=== PATIENT | female | born 1950 | race Caucasian/White ===

== ENCOUNTER 2018-03-25 13:32 | Observation (INO) | payer OTHER, SELFPAY ==
[2018-03-25] VITALS (8 sets, daily range): BP systolic 116–160; BP diastolic 60–92; PULSE 66–92; RESP 16–18; TEMP 36.7–37.1; O2SAT 96–99; BMI 21.6
--- NOTE | 2018-03-25 13:43 | DI.RAD.S_ITS ---
PROCEDURE: XR CHEST 1V INDICATIONS: chest pain TECHNIQUE: One view of the chest was acquired. COMPARISON: None. FINDINGS: Surgical changes and devices: None. Lungs and pleura: No pleural effusions or pneumothorax. Lungs are clear. Mediastinum: Mediastinal contours appear normal. Heart size is normal. Bones and chest wall: No suspicious bony lesions. Overlying soft tissues appear unremarkable. IMPRESSION: Source of chest pain is not seen. Dictated by: Hoang Archer M.D. on 03/25/2018 at 13:54 Approved by: Hoang Archer M.D. on 03/25/2018 at 13:54
[2018-03-25 14:05] LABS: Add Manual Diff / Slide Review NO; Basophils Percent Auto 0.7 % (0-2); Eosinophils Percent Auto 5.8 % (2-4); Hematocrit 43.3 % (36-46); Hemoglobin 14.7 g/dL (12.0-16.0); Lymphocytes Percent Auto 35.8 % (25-40); Mean Corpuscular HGB Conc 33.9 % (30-36); Mean Corpuscular Hemoglobin 32.4 PG (26-34); Mean Corpuscular Volume 95.6 fL (80-100); Monocytes Percent Auto 13.4 % (3-14); Neutrophils Absolute Auto 2100 /uL (3000-5900); Neutrophils Percent Auto 44.3 % (50-75); Platelet Count 176 X10^3/uL (150-400); Red Blood Cell Count 4.52 X10^6/uL (4.0-5.2); White Blood Cell Count 4.6 X10^3/uL (4.5-11.0)
[2018-03-25 14:13] LABS: INR 0.9 (0.9-1.3); Prothrombin Time 10.1 SECONDS (10.1-12.7)
[2018-03-25 14:15] LABS: PTT Partial Thromboplastin Tim 31 SECONDS (26.4-36.2)
[2018-03-25 14:16] LABS: D Dimer 212 ng/mL (<230)
[2018-03-25 14:17] LABS: Alanine Aminotransferase 48 IU/L (9-52); Albumin 4.5 g/dL (3.5-5.0); Albumin Globulin Ratio 1.8 (1.0-2.8); Alkaline Phosphatase 82 U/L (38-126); Aspartate Aminotransferase 43 IU/L (14-36); BUN Creatinine Ratio 22.5 (6-22); Bilirubin Total 0.9 mg/dL (0.2-1.3); Blood Urea Nitrogen 18 mg/dL (7-17); Carbon Dioxide 26 mmol/L (22-32); Chloride 106 mmol/L (98-107); Creatine Kinase 93 U/L (30-135); Estimated Glomerular Filt Rate > 60.0 mL/min (>60); Globulin 2.5 g/dL (1.7-4.1); Glucose 89 mg/dL (80-110); HEMOLYSIS < 15 (0-50); Lipase 125 U/L (23-300); Potassium 4.6 mmol/L (3.4-5.1); Sodium 142 mmol/L (137-145)
[2018-03-25 14:30] LABS: Troponin I < 0.012 ng/mL (0.01-0.034)
--- NOTE | 2018-03-25 14:45 | ED.CHESTPAIN ---
HPI - Chest Pain General Chief Complaint: Chest Pain Stated Complaint: chest pressure Time Seen by Provider: 03/25/18 13:38 Source: patient, family and EMS Mode of arrival: EMS Limitations: no limitations History of Present Illness HPI narrative: 67-year-old nonsmoking female presents by EMS for evaluation of chest pain at rest which started about 10:00 a.m. this morning. She states it radiated upper chest to the base of her neck. She denies provocation but states it improved after the medics gave her nitro. She denies associated symptoms such is dizziness or shortness of breath but has become a bit lightheaded on occasion. She states her chest discomfort is more like a burning or pressure, not a sharp and stabbing pain. She does admit to decreased exercise tolerance over the past week and states she has become increasingly fatigued with normal exertion in her [place] [address]. She does admit to a few episodes of similar type discomfort earlier in the week that were brought on by exertion but much shorter in duration. She denies any recent travel, history of blood clots or recent injury. MD complaint: chest pain Onset (ago): hour(s) Duration: constant and improved Onset: during rest Pain location: substernal Quality: tightness and aching Pain radiation: neck Relieving factors: nitroglycerin Exacerbating factors: nothing Treatments prior to arrival chest pain: aspirin and nitroglycerin Related Data Home Medications Medication Instructions Recorded Confirmed citalopram [Celexa] 30 mg PO DAILY #0 08/19/16 03/25/18 bupropion HCl 150 mg PO DAILY 03/25/18 03/25/18 tretinoin 03/25/18 Allergies Allergy/AdvReac Type Severity Reaction Status Date / Time latex [LATEX] Allergy Intermediate RASH Unverified 09/01/17 12:52 Penicillins [PENICILLINS] Allergy Intermediate RASH Unverified 09/01/17 12:52 Review of Systems Review of Systems All systems reviewed & are unremarkable except as noted in HPI and below Constitutional Denies chills, Denies fever(s), Denies lethargy and Denies weakness Eyes Denies change in vision, Denies eye discharge, Denies irritation and Denies loss of vision ENT Ears, Nose, Mouth, and Throat: Denies change in voice, Denies neck pain and Denies sore throat Cardiovascular Reports chest pain, Denies irregular heart rhythm, Denies lightheadedness, Denies palpitations, Denies dyspnea, Denies dyspnea on exertion and Denies orthopnea Respiratory Denies cough, Denies dyspnea, Denies dyspnea on exertion and Denies wheezing Gastrointestinal Gastrointestinal: Denies abdominal pain, Denies change in bowel habits, Denies diarrhea, Denies nausea and Denies vomiting Genitourinary Denies hematuria, Denies flank pain, Denies urinary incontinence and Denies urinary urgency Musculoskeletal Denies neck pain Integumentary/Breasts Denies pruritus, Denies erythema, Denies rash and Denies wounds Neurologic Denies confusion, Denies loss of vision and Denies weakness Psychiatric Denies anxiety, Denies confusion, Denies depression, Denies homicidal ideation and Denies suicidal ideation Endocrine Denies palpitations Hematologic/Lymphatic Denies easy bruising Allergic/Immunologic Denies wheezing [facility] Social History Smoking Status: Never smoker Exam Narrative Exam Narrative: 59-year-old female in no obvious significant distress Initial Vital Signs Initial Vital Signs: Vital Signs Temperature 98.0 F 03/25/18 13:48 Pulse Rate 72 03/25/18 13:48 Respiratory Rate 18 03/25/18 13:48 Blood Pressure 151/80 H 03/25/18 13:48 Pulse Oximetry 99 03/25/18 13:48 Const General: cooperative and well developed Nutritional Appearance: well nourished Orientation: alert, awake, oriented x3 and not confused HENMT Head: normal to inspection Nose: external nose normal Face and sinus: normal facial exam Mouth: oral mucosae normal Eyes General: appearance normal, both eyes and all related structures Eyelids: eyelids normal Conjunctivae: conjunctivae normal Sclera: sclerae normal Pupils: PERRL EOM: EOM intact bilaterally Neck Neck: normal visual inspection, trachea midline, No lymphadenopathy, No midline deformity and No JVD Lymphatic: No lymphedema Resp Effort & Inspection: normal respiratory effort, able to speak in complete sentences, no respiratory distress and no use of accessory muscles Auscultation: clear to auscultation bilaterally, no rales, no rhonchi and no wheezes GI Inspection: non-distended Palpation: soft, no hepatosplenomegaly, No guarding, No pulsatile mass and No tender Auscultation: normal bowel sounds Back/Spine/Pelvis Back: No CVA tenderness Cervical Spine: cervical ROM normal and No pain with cervical ROM Thoracic/Lumbar Spine: thoracic and lumbar spine normal to inspection Skin General: no rashes or lesions noted, No jaundice and No petechiae Extrem General: full ROM, no clubbing, cyanosis or edema, no pedal edema and no calf tenderness Course Orders Ordered: ED Orders 03/25/18 13:43 XR chest 1V Stat 03/25/18 13:55 Complete Blood Count AUTO DIFF Stat Comprehensive Metabolic Panel Stat D Dimer Stat Lipase Stat Partial Thromboplastin Time Stat Prothrombin Time INR Stat Troponin & CK Cardiac Panel Stat Reevaluation(s) Reevaluation #1: no ongoing pain Consultations Consultation #1: Call to Dr. Acuña whom is happy to accept to OBS Vital Signs - 8 hr 03/25/18 13:48 03/25/18 13:51 Temperature 98.0 F Pulse Rate 72 70 Respiratory Rate 18 16 Blood Pressure 151/80 H Blood Pressure [Left Arm] 151/60 H Pulse Oximetry 99 98 MDM - Chest Pain Differential Diagnosis Likely unstable angina pectoris, st elevation myocardial infarction and chest pain Medical Records Data Attestation: I reviewed the patient's medical records. Lab Data Attestation: I reviewed the patient's lab results. Result diagrams: 03/25/18 13:55 03/25/18 13:55 Lab Results 03/25/18 03/25/18 03/25/18 Range/Units 13:55 13:55 13:55 WBC 4.6 (4.5-11.0) X10^3/uL RBC 4.52 (4.0-5.2) X10^6/uL Hgb 14.7 (12.0-16.0) g/dL Hct 43.3 (36-46) % MCV 95.6 (80-100) fL MCH 32.4 (26-34) PG MCHC 33.9 (30-36) % RDW 13.0 (11.6-14.8) % Plt Count 176 (150-400) X10^3/uL Neut % (Auto) 44.3 L (50-75) % Lymph % (Auto) 35.8 (25-40) % Ellis % (Auto) 13.4 (3-14) % Eos % (Auto) 5.8 H (2-4) % Baso % (Auto) 0.7 (0-2) % Neut # (Auto) 2100 L (3554-4151) /uL PT 10.1 (10.1-12.7) SECONDS INR 0.9 (0.9-1.3) APTT 31 (26.4-36.2) SECONDS D-Dimer 212 (<230) ng/mL Sodium 142 (137-145) mmol/L Potassium 4.6 (3.4-5.1) mmol/L Chloride 106 (98-107) mmol/L Carbon Dioxide 26 (22-32) mmol/L BUN 18 H (7-17) mg/dL Creatinine 0.80 (0.52-1.04) mg/dL Estimated GFR > 60.0 (>60) mL/min BUN/Creatinine Ratio 22.5 H (6-22) Glucose 89 (80-110) mg/dL Calcium 9.0 (8.4-10.2) mg/dL Total Bilirubin 0.9 (0.2-1.3) mg/dL AST 43 H (14-36) IU/L ALT 48 (9-52) IU/L Alkaline Phosphatase 82 (38-126) U/L Total Creatine Kinase 93 (30-135) U/L CK-MB (CK-2) TNP CK-MB (CK-2) Rel Index TNP Troponin I < 0.012 (0.01-0.034) ng/mL Total Protein 7.0 (6.3-8.2) g/dL Albumin 4.5 (3.5-5.0) g/dL Globulin 2.5 (1.7-4.1) g/dL Albumin/Globulin Ratio 1.8 (1.0-2.8) Lipase 125 (23-300) U/L Imaging Data Chest x-ray: Radiologist's impression: [address] [address] XRay Report Signed Patient: Erinn Tadeo JMR#: [id number] : 9Acct:[id number] Age/Sex: 67 / FDate of Service: 03/25/18 Loc: ED Accession Number: [id number] Procedure: XR chest 1V Ordering Provider: Lenin Guaman D.O. PROCEDURE: XR CHEST 1V INDICATIONS: chest pain TECHNIQUE: One view of the chest was acquired. COMPARISON: None. FINDINGS: Surgical changes and devices: None. Lungs and pleura: No pleural effusions or pneumothorax. Lungs are clear. Mediastinum: Mediastinal contours appear normal. Heart size is normal. Bones and chest wall: No suspicious bony lesions. Overlying soft tissues appear unremarkable. IMPRESSION: Source of chest pain is not seen. Dictated by: Hoang Archer M.D. on 03/25/2018 at 13:54 Approved by: Hoang Archer M.D. on 03/25/2018 at 13:54 ECG Data Attestation: I personally reviewed and interpreted this ECG as follows: Prior ECG tracings: not available for review Interpretation: EKG is normal sinus rhythm and free of any signs of ischemia or ectopy. EKG #2 no change Discharge Plan Departure Patient Disposition: Admitted as Observation Clinical Impression: Chest pain Discharge Date/Time: 03/25/18 15:02 Admit Date/Time: 03/25/18 15:01 Admit Provider: Candelaria Acuña
[2018-03-25] MEDS: NITROGLYCERIN 0.4 MG SL TAB SL (15:47)
--- NOTE | 2018-03-25 19:12 | P.HP_ITS ---
History of Present Illness Date Patient Seen: 03/25/18 Time Patient Seen: 18:55 Chief complaint: chest pressure Narrative: Chief complaint: Substernal burning History of present illness: This pleasant 67-year-old female who is well known to me is brought to the emergency department via ambulance due to substernal burning which responded to 1 sublingual nitroglycerin. Patient was evaluated in the emergency department where while she was going to the bathroom she had more substernal burning and was given a 2nd dose of nitroglycerin and again responded. She had 2 EKGs the 1st 1 was without symptoms the 2nd 1 was with symptoms and she had a troponin and CK which were all negative. Her symptoms started yesterday when she was cleaning her barn and feeding her horses and she developed substernal burning that radiated up into her throat. She did feel little sick to her stomach but no vomiting she did not have any significant diaphoresis she did not have any shortness of breath she did not have any chest tightness or chest pressure she had no associated headaches. The pain did not radiate to her arms. She felt very tired and so she went and laid down. She was a little concerned that maybe she would have a stroke. Her was in [place] yesterday. She wrote a note stating that she wanted with dignity if she did have a large stroke. She then continued on her day. She has not been drinking alcohol regularly but she did have 3 glasses of red wine last night. She drank coffee this morning and she typically drinks 4 cups of coffee in the morning and she had then at about 930 she developed substernal chest burning. Again it radiated into her throat but not into her neck not into her shoulder and not down her arms. Separately she feels she has been having some left thumb pain. Again today she had no shortness of breath or diaphoresis or chest pressure or actual chest pain. She did not have any nausea or vomiting today. She has not been taking any significant anti-inflammatories. She does drink 4 cups of coffee a day but this is been typically normal for her. Apparently in January she started using a gel that is transdermal that is human growth hormone. She used it for approximately 6-8 weeks but was noted by friends to be ?bouncing off the mo ?so she discontinued this approximately 2 weeks ago. She has been very tired. She states that she has been sleeping better while she was using the transdermal human growth hormone gel and maybe she had better energy. She has been very tired since she stopped it. She used it to help with hair growth, skin wrinkles, libido and energy. Otherwise she has been in her usual state health. She feels good now at the time my interview and is not having any symptoms. Past medical history: 1. Depression 2. Malignant melanoma, history of 3. Hyperlipidemia, declines treatment 4. Gilbert's syndrome 5. Colonic polyps Medications Wellbutrin SR 150 mg p.o. b.i.d. Citalopram 20 mg daily Fish oil 2 daily Calcium supplement Glucosamine chondroitin sulfate Super B complex Vitamin-D Flaxseed Allergies: Penicillin Latex Past surgical history 1. Surgical removal of melanoma on limb 2. Ovarian cyst and fibroid status post laparoscopy in 2003 3. Cataract surgery bilaterally Family history: Father from metastatic lung cancer at age 72. He had a long history of smoking Mother from cerebral aneurysm at 72, she had had an aneurysm at 50, was a smoker Sister with type 1 diabetes Sister with hyperlipidemia and hypertension Brother with sudden episode, survived had a stent placed at age 62 Social history: Patient is . She and her are retired. They live in [facility]. They have a lot a great [place] patient is active around the property Health related behavior: Patient has significantly cut down alcohol use. She has never had any health complications from this. Patient is very active, rides horses. Patient does not smoke and never did on a regular basis Patient History Family & Social History Social History: household members spouse Prior Living Arrangements House Safety & Behavioral: Feels Safe in Current Yes Environment Suicidal Ideation Description None Suicide Plan Description No Plan Tobacco & Substance use: Smoking Status Never smoker alcohol intake frequency a few times a week Substance Use Type does not use Meds Home Medications Medication Instructions Recorded Confirmed Type citalopram [Celexa] 30 mg PO DAILY #0 08/19/16 03/25/18 History bupropion HCl 150 mg PO DAILY 03/25/18 03/25/18 History Allergies Allergy/AdvReac Type Severity Reaction Status Date / Time latex [LATEX] Allergy Intermediate RASH Unverified 09/01/17 12:52 Penicillins [PENICILLINS] Allergy Intermediate RASH Unverified 09/01/17 12:52 Review of Systems Review of Systems All systems reviewed & are unremarkable except as noted in HPI and below Constitutional Constitutional: Reports frequent falls and Reports headache(s) ENT Ears, Nose, Mouth, and Throat: Yes dizziness and Yes headache(s) Cardiovascular Cardiovascular: Reports fainting Neurologic Neurologic: Reports confusion, Reports dizziness, Reports syncope, Reports frequent falls, Reports headache(s), Reports focal weakness and Reports memory loss Psychiatric Psychiatric: Reports confusion and Reports memory loss Exam Vital Signs (past 8 hours): - 03/25/18 13:48 03/25/18 13:51 03/25/18 15:47 Temperature 98.0 F Pulse Rate 72 70 69 Respiratory Rate 18 16 Blood Pressure 151/80 H 143/80 H Blood Pressure [Left Arm] 151/60 H Pulse Oximetry 99 98 03/25/18 15:53 03/25/18 16:05 03/25/18 16:15 Temperature 98.5 F Pulse Rate 73 68 69 Respiratory Rate 17 17 Blood Pressure 143/80 H 116/68 146/83 H Blood Pressure [Left Arm] Pulse Oximetry 99 98 Oxygen Delivery Method Room Air Narrative Exam Narrative: Patient is afebrile vital signs are stable. Patient is alert and oriented in no apparent distress joking and laughing HEENT: Unremarkable Neck: Supple without adenopathy, thyromegaly, jugular venous distention or bruits Chest: Clear to auscultation bilaterally Cor: Regular rate and rhythm without any murmur Abdomen: Positive bowel sounds, soft, mild midepigastric tenderness Extremities: No edema, pulses intact Skin: No rashes Neurologic exam nonfocal, cranial nerves 2-12 are grossly intact. Strength is intact, sensation is intact to light touch Objective Labs Result Diagrams: 03/25/18 13:55 03/25/18 13:55 Labs: Laboratory Results - last 24 hr 03/25/18 03/25/18 03/25/18 13:55 13:55 13:55 WBC 4.6 RBC 4.52 Hgb 14.7 Hct 43.3 MCV 95.6 MCH 32.4 MCHC 33.9 RDW 13.0 Plt Count 176 Neut % (Auto) 44.3 L Lymph % (Auto) 35.8 [place] % (Auto) 13.4 Eos % (Auto) 5.8 H Baso % (Auto) 0.7 Neut # (Auto) 2100 L PT 10.1 INR 0.9 APTT 31 D-Dimer 212 Sodium 142 Potassium 4.6 Chloride 106 Carbon Dioxide 26 BUN 18 H Creatinine 0.80 Estimated GFR > 60.0 BUN/Creatinine Ratio 22.5 H Glucose 89 Calcium 9.0 Total Bilirubin 0.9 AST 43 H ALT 48 Alkaline Phosphatase 82 Total Creatine Kinase 93 CK-MB (CK-2) TNP CK-MB (CK-2) Rel Index TNP Troponin I < 0.012 Total Protein 7.0 Albumin 4.5 Globulin 2.5 Albumin/Globulin Ratio 1.8 Lipase 125 Assessment & Plan Plan: Assessment/Plan Narrative: 67-year-old female with untreated hyperlipidemia and depression with chest pain and concern for unstable angina. At this point workup is negative but due to her clinical presentation and response to nitroglycerin I feel she needs to be admitted for observation and ruled out for acute myocardial infarction. If her labs are normal in the morning I would like her to get a stress Mibi prior to discharge. She was treated with aspirin. We will check labs in the morning as well as doing serial CK and troponins. We will not start beta blockers at this time with hopes that we can do stress testing in a.m.. Will provide nitroglycerin should she have recurrent symptoms. Will continue telemetry and provide supplemental oxygen as indicated. Will treat with Protonix is both GI prophylaxis as well as to treat for suspicion of possible gastric nature of symptoms. Assessment 2. Depression Plan: Continue citalopram and Wellbutrin Assessment 3. History of hyperlipidemia, borderline Plan will check labs in the morning Assessment 4. History of Gilbert's syndrome No current issues Code status is full code
[2018-03-25] MEDS: CITALOPRAM 20 MG TABLET PO (20:07)
[2018-03-25] MEDS: PANTOPRAZOLE 40 MG VIAL IV (20:07)
[2018-03-25 20:35] LABS: Troponin I < 0.012 ng/mL (0.01-0.034)
[2018-03-25] MEDS: LORazepam 0.5 MG TABLET PO (22:18)
[2018-03-26 02:59] LABS: Add Manual Diff / Slide Review NO; Basophils Percent Auto 0.8 % (0-2); Eosinophils Percent Auto 6.6 % (2-4); Hematocrit 41.9 % (36-46); Hemoglobin 14.2 g/dL (12.0-16.0); Lymphocytes Percent Auto 37.2 % (25-40); Mean Corpuscular HGB Conc 33.9 % (30-36); Mean Corpuscular Hemoglobin 32.5 PG (26-34); Mean Corpuscular Volume 95.9 fL (80-100); Monocytes Percent Auto 9.5 % (3-14); Neutrophils Absolute Auto 2600 /uL (3000-5900); Neutrophils Percent Auto 45.9 % (50-75); Platelet Count 176 X10^3/uL (150-400); Red Blood Cell Count 4.37 X10^6/uL (4.0-5.2); Red Cell Distribution Width 12.9 % (11.6-14.8); White Blood Cell Count 5.7 X10^3/uL (4.5-11.0)
[2018-03-26 03:04] LABS: Alanine Aminotransferase 43 IU/L (9-52); Albumin 3.9 g/dL (3.5-5.0); Albumin Globulin Ratio 1.7 (1.0-2.8); Alkaline Phosphatase 55 U/L (38-126); Aspartate Aminotransferase 31 IU/L (14-36); BUN Creatinine Ratio 17.5 (6-22); Bilirubin Total 1.3 mg/dL (0.2-1.3); Blood Urea Nitrogen 14 mg/dL (7-17); Calcium 8.9 mg/dL (8.4-10.2); Carbon Dioxide 26 mmol/L (22-32); Chloride 108 mmol/L (98-107); Cholesterol 208 mg/dL (140-199); Estimated Glomerular Filt Rate > 60.0 mL/min (>60); Globulin 2.3 g/dL (1.7-4.1); Glucose 93 mg/dL (80-110); HDL Cholesterol 87 mg/dL (40-60); HEMOLYSIS < 15 (0-50); LDL Cholesterol Calculated 99 mg/dL (<100); Potassium 3.9 mmol/L (3.4-5.1); Sodium 142 mmol/L (137-145); Total Protein 6.2 g/dL (6.3-8.2); Triglycerides 111 mg/dL (35-150)
[2018-03-26 03:15] VITALS: BP 127/72; PULSE 63; RESP 16; TEMP 36.5; O2SAT 97
[2018-03-26 03:19] LABS: Troponin I < 0.012 ng/mL (0.01-0.034)
--- NOTE | 2018-03-26 06:41 | PC.NURSE ---
Addendum entered by Nancy Cohen R.N. 03/26/18 06:43: troponins negative Original Note: AxOx3, VSS, tolerating room air. No chest pain. No numbness/tingling in arms or legs. Uneventful night. EKG done this morning, in chart.
[2018-03-26 08:30] VITALS: BP 137/78; PULSE 67; RESP 15; TEMP 36.8; O2SAT 96
[2018-03-26] MEDS: ASPIRIN EC 81 MG TABLET PO (09:43)
[2018-03-26] MEDS: buPROPion SR 150 MG TAB PO (09:43)
--- NOTE | 2018-03-26 11:24 | CM.DANOTE ---
Addendum entered by GAURI Tejeda 03/26/18 14:49: ADD: Per MD, pt is medically stable to d/c home today with no identified barriers to discharge. Per RN, pt is still wanting home today and no concerns at this time. Plan: Patient to d/c home today via spouse POV and no SW needs at this time. GAURI Tejeda Original Note: Patient is a 67 year old female who was admitted on 03/25/18 for Chest Pressure. Pt has [employer] ADV for insurance and her PCP is Dr. Acuña. EMR was reviewed. Per MD, to check pt's labs and test results this morning towards possible d/c home today. SW met bedside with pt, spouse, and a few local supportive friends who were visiting and explained role and pt confirms that she lives at home in [place] with her and a few horses whom she cares for and is very active and independent. Pt states that her is her DPOA and that they plan to provide a copy to the hospital and PCP office to have on record. Pt denies any hx of HH or SNF and preference is to return home today with supportive spouse and friends to assist if needed but pt and spouse do not anticipate any needs. Plan: SW to follow for likely pt d/c home via spouse POV and local supportive friends pending MD rounds. GAURI Tejeda Discharge Planning/Care Management CM Discharge Assessment Start: 03/26/18 11:22 Freq: Status: Active Protocol: Document 03/26/18 11:22 BF (Rec: 03/26/18 11:24 [id number]) Discharge Planning Assessment Assigned Health It Specialist GAURI Garcia DPOA/Assigned Designee Name spouse Khanh Tadeo Contact Information [phone] Advance Directives? Yes History Provided By Patient Significant Other Medical Record Has Patient been admitted in last 30 No days? Prior Living Arrangements House Household Members spouse Type of transporation used prior to Drives own vehicle admit Comment Patient is very independent and active at baseline. Independent with ADL's Yes Is patient alert and oriented? Yes Caregiver for Another No Comment Patient and spouse anticipate home with no needs at d/c. Barriers to Discharge No Discharge Plan Home Transportation Arrangement Spouse is bedside and can provide transport at d/c. Referrals Initiated None needed Whiteboard Updated in Patient Room with Yes name and ext. # of Health It Specialist Review Status In Process Please Provide Date Initial DC 03/26/18 Assessment Was Performed Next Review Type Continued Stay Review
[2018-03-26 12:31] VITALS: BP 140/77; PULSE 70; RESP 16; TEMP 37.1; O2SAT 97
[2018-03-26] MEDS: PANTOPRAZOLE 20 MG TABLET PO (14:16)
[2018-03-26] MEDS: MAG HYDROX/ALUMINUM/SIMETH SUS 20 ML, LIDOCAINE VISCOUS 2% 15 ML PO (14:18)
--- NOTE | 2018-03-26 14:24 | PC.NURSE ---
1425 Pt has had stat EKG, protonix and GI cocktail per dr Reagan orders r/t Pt c/o esophageal burning. Pt denied chest pain/pressure. the medication stopped all burning discomfort per Pt. Dr Reagan reviewed all labs and compared the EKG results. Gave Pt inst on extra time of rest, bland diet, take Nexium, and Will consider DC to home today Spuse at [facility], supportive.
--- NOTE | 2018-03-26 14:36 | P.DS_ITS ---
History of Present Illness Date Patient Seen: 03/26/18 Time Patient Seen: 13:26 Chief complaint: chest pressure Narrative: Patient admitted last evening with chest pressure. She had had has several glasses wine quite a few glasses of coffee during the day felt midsternal pressure. No smoking history no lipid history does have history of depression and anxiety but that is not been usually associated with the chest pain is this morning follow-up of cardiac enzymes all negative and repeated EKG this morning shows no evolution. Patient did have a recurrence of some of her pressure and burning-like discomfort midsternally after eating tomato soup for lunch. This completely resolved after giving the patient a GI cocktail. Unable to get a treadmill Mibi today because of weekend and I think patient is safe to go home to rest without acid EPA foods on proton pump inhibitors baby aspirin and no exercise or activities until she can get a outpatient treadmill test done Discharge Providers Date of admission: 03/25/18 15:01 Primary care physician: Candelraia Acuña MD Discharge provider: Juan Ramon Reagan MD Discharge Date: 03/26/18 Summary Discharge Diagnosis: Patient said discharge diagnosis 1. Atypical chest pain. I believe this most likely secondary to GI or esophageal symptoms. Diagnosis 2. Depression anxiety stable Hospital Course: Patient was admitted through the emergency room evaluated with serial sets of cardiac enzymes and serial EKGs none of which evolved any sign of ischemia. Patient had resolution of her symptoms following nitroglycerin in the ER and was given Protonix in the emergency room last evening which seemed to help as well she had no symptoms until I have having a tomato soup for lunch today read triggering some very similar feelings. While still having the symptoms she was given a mix of Mylanta and viscous xylocaine which cause complete resolution of her symptoms. Status at Discharge Cognitive/behavioral status at discharge: Completely normal cognitive state at time of discharge Functional status at discharge: independent ambulation Overall status at discharge: patient is back to baseline Time Spent with Patient Greater than 30 minutes Exam Vital Signs (past 8 hours): - 03/26/18 08:30 03/26/18 12:31 Temperature 98.2 F 98.8 F Pulse Rate 67 70 Respiratory Rate 15 16 Blood Pressure 137/78 140/77 Pulse Oximetry 96 97 Oxygen Delivery Method Room Air Narrative Exam Narrative: Patient is sitting comfortably in bed in quest her answering questions very clearly cognitively intact PERRLA EOMs intact Neck without adenopathy or mass Lungs clear to auscultation percussion Cardiovascular exam shows regular rate and rhythm without murmur S3 or significant edema Abdomen without hepatosplenomegaly mass rebound or guarding. Bowel sounds are present Back without significant tenderness rashes Neuro intact and symmetrical to fine touch motor speech is clear Objective Labs Result Diagrams: 03/26/18 02:44 03/26/18 02:44 Labs: Laboratory Results - last 24 hr 03/25/18 03/25/18 03/26/18 13:55 19:59 02:44 WBC RBC Hgb Hct MCV MCH MCHC RDW Plt Count Neut % (Auto) Lymph % (Auto) Desha % (Auto) Eos % (Auto) Baso % (Auto) Neut # (Auto) Sodium Potassium Chloride Carbon Dioxide BUN Creatinine Estimated GFR BUN/Creatinine Ratio Glucose Calcium Total Bilirubin AST ALT Alkaline Phosphatase Troponin I < 0.012 < 0.012 < 0.012 Total Protein Albumin Globulin Albumin/Globulin Ratio Triglycerides Cholesterol LDL Cholesterol, Calc HDL Cholesterol 03/26/18 03/26/18 02:44 02:44 WBC 5.7 RBC 4.37 Hgb 14.2 Hct 41.9 MCV 95.9 MCH 32.5 MCHC 33.9 RDW 12.9 Plt Count 176 Neut % (Auto) 45.9 L Lymph % (Auto) 37.2 Desha % (Auto) 9.5 Eos % (Auto) 6.6 H Baso % (Auto) 0.8 Neut # (Auto) 2600 L Sodium 142 Potassium 3.9 Chloride 108 H Carbon Dioxide 26 BUN 14 Creatinine 0.80 Estimated GFR > 60.0 BUN/Creatinine Ratio 17.5 Glucose 93 Calcium 8.9 Total Bilirubin 1.3 AST 31 ALT 43 Alkaline Phosphatase 55 Troponin I Total Protein 6.2 L Albumin 3.9 Globulin 2.3 Albumin/Globulin Ratio 1.7 Triglycerides 111 Cholesterol 208 H LDL Cholesterol, Calc 99 HDL Cholesterol 87 H Discharge Plan Discharge Plan Under care of provider: Dr Acuña Diagnostic studies (x-ray, etc.): The patient contact Dr. Acuña 1st thing Wednesday morning for an outpatient Discharge Med Rec/Prescriptions Prescriptions: No Action citalopram [Celexa] 20 MG tablet 30 mg PO DAILY Qty: 0 RF: 0 bupropion HCl 150 mg tablet sustained-release 12 hr 150 mg PO DAILY RF: 0 Discharge Orders: Discharge (Order); Ordered 03/26/18 Ordered By: Juan Ramon Reagan Discharge Health Status Multidrug resistant organism: No MDRO MDRO Verified by culture: Yes Precautions: [place] Discharge Data Primary Care Provider: Candelaria Acuña Attending Provider: Candelaria Acuña Admit Date/Time: 03/25/18 15:01
--- NOTE | 2018-03-26 14:39 | PC.NURSE ---
1440 Pt remains on bedrest, Denies any pain or discomfort. Dr Reagan states will dc Pt to home now.
== END 2018-03-26 15:32 | disposition home or self-care (01) ==
LOC: ED 14:58 → AC 15:02
PROVIDERS: Admitting Provider Family Medicine; Emergency Provider Emergency Medicine; Family Provider Family Medicine; PCP Family Medicine; Visit Provider Family Medicine
DX: R07.9 Chest pain, unspecified (principal); F33.41 Major depressive disorder, recurrent, in partial remission; F41.9 Anxiety disorder, unspecified; E78.5 Hyperlipidemia, unspecified; E80.4 Gilbert syndrome
CPT/HCPCS: 36415; 71045; 80053; 80061; 82550; 83690; 84484; 85025; 85379; 85610; 85730; 93005; 99283; 99284; G0378; C9113

== ENCOUNTER → 2018-10-19 12:10 | Outpatient (CLI) | payer OTHER, SELFPAY ==
[2018-03-25 16:14] VITALS: BMI 21.6
--- NOTE | 2018-10-19 | DI.MG.S_ITS ---
BILATERAL DIGITAL SCREENING MAMMOGRAM 3D/2D WITH CAD: 10/19/2018 CLINICAL: Routine screening. Comparison is made to exams dated: 09/03/2017 mammogram, 07/07/2016 mammogram, and 02/15/2014 mammogram - [facility]. The tissue of both breasts is heterogeneously dense. This may lower the sensitivity of mammography. Current study was also evaluated with a Computer Aided Detection (CAD) system. No significant masses, calcifications, or other findings are seen in either breast. There has been no significant interval change. IMPRESSION: NEGATIVE There is no mammographic evidence of malignancy. A 1 year screening mammogram is recommended. This exam was interpreted at Station ID: [id number]. NOTE: For mammograms, a report in lay terms will be sent to the patient. Approximately 15% of breast malignancies will not be visualized mammographically. In the management of a palpable breast mass, a negative mammogram must not discourage biopsy of a clinically suspicious lesion. Electronically Signed By: Espinoza burnett/ashwini:10/19/2018 13:12:14 letter sent: Normal Exam ACR BI-RADS Category 1: Negative [id number]
== END ==
PROVIDERS: PCP Family Medicine; Visit Provider Family Medicine
DX: Z12.31 Encounter for screening mammogram for malignant neoplasm of breast (principal); M85.852 Other specified disorders of bone density and structure, left thigh; Z78.0 Asymptomatic menopausal state
CPT/HCPCS: 77063; 77067; 77080

== ENCOUNTER → 2019-03-29 16:36 | Outpatient (CLI) | payer OTHER, SELFPAY ==
[2018-03-25 16:14] VITALS: BMI 21.6
--- NOTE | 2019-03-29 | DI.MRI.S_ITS ---
PROCEDURE: MR BRAIN (IAC) WWO CON INDICATIONS: DIZZINESS, HEADACHE, LOSS OF BALANCE TECHNIQUE: Noncontrast sagittal T1 spin echo, axial FLAIR, axial gradient echo, axial diffusion and ADC through the brain. Axial thin-slice 3D CISS, coronal TruFISP, axial T1 spin echo with fat saturation through the internal auditory canals. After the administration of contrast, thin slice axial and coronal T1 spin echo with fat saturation through the internal auditory canals, and axial T1 spin echo with fat saturation through the brain. COMPARISON: None. FINDINGS: Image quality: Excellent. Cerebellopontine angles: Inner ear structures appear normally formed. No suspicious enhancement in the internal auditory canal or along the course of the 7th cranial nerve. Presumed volume averaging artifact seen on image 9 series 12 on the right. Bilateral subcentimeter areas of enhancement present on image 5 series 12 just inferior to the cerebellopontine angles, also probably volume averaging artifact of vascular structures although cannot entirely exclude small bilateral masses. CSF spaces: Ventricles are normal in size and shape. No extra-axial fluid collections. Basal cisterns are patent. Brain: No intracranial bleeds or mass effects. Scattered small white matter changes, probably represent chronic microvascular ischemic disease, versus statistically less likely demyelination or other infectious, inflammatory, neurodegenerative etiology, technically nonspecific. Milner-white matter interface is intact. No abnormal intracranial enhancement. Diffusion weighted images demonstrate no acute ischemic insults. Brainstem appears normal. Normal intravascular flow voids are present. Skull and face: Calvarial marrow signal is normal. Orbits appear normal. Mild bilateral maxillary sinus disease IMPRESSION: Sub-5 mm areas of enhancement seen slightly inferior of the cerebellopontine angles, probably volume averaging artifact although cannot entirely exclude very small bilateral mass lesions (such as meningiomas. These are distant from the cranial nerves therefore acoustic neuroma not in the differential). Unclear actual significance however if clinically warranted, this could be followed up with contrast-enhanced MRI in 6 months given the absence of any relevant prior comparison studies. Mild bilateral maxillary sinus disease. No evidence of acute ischemia Diffuse small white matter changes, probably represent chronic microvascular ischemic disease, versus statistically less likely demyelination or other infectious, inflammatory, neurodegenerative etiology, technically nonspecific. Dictated by: Sarmad Landon M.D. on 03/30/2019 at 8:24 Approved by: Sarmad Landon M.D. on 03/30/2019 at 8:34
== END ==
PROVIDERS: Family Provider Family Medicine; PCP Family Medicine; Visit Provider Family Medicine
DX: R42 Dizziness and giddiness (principal); R51 Headache; R26.89 Other abnormalities of gait and mobility; J32.0 Chronic maxillary sinusitis
CPT/HCPCS: 70553

== ENCOUNTER → 2019-05-30 11:01 | Outpatient (CLI) | payer MEDICARE, SELFPAY ==
[2018-03-25 16:14] VITALS: BMI 21.6
--- NOTE | 2019-05-30 | DI.US.S_ITS ---
PROCEDURE: US CAROTID DOPPLER BI INDICATIONS: R09.89 TECHNIQUE: Color and pulse Doppler interrogation was performed of both carotid systems, with image documentation and velocity measurements. COMPARISON: , MR, MR BRAIN (IAC) WWO CON, 03/29/2019, 17:03. FINDINGS: Stenosis calculations are based on SRU (Society of Radiologists in Ultrasound) criteria. Right side: Brachial blood pressure: 144/87 mm Hg. Common carotid artery peak systolic velocity: 63 cm/sec. Internal carotid artery peak systolic velocity: 63 cm/sec. Internal carotid artery end diastolic velocity: 18 cm/sec. External carotid artery peak systolic velocity: 72 cm/sec. ICA/CCA peak systolic ratio: 0.99. Milner scale imaging description: Minimal plaquing Percent internal carotid artery stenosis: No significant stenosis. Vertebral artery: Flow direction is antegrade. Left side: Brachial blood pressure: 146/81 mm Hg. Common carotid artery peak systolic velocity: 95 cm/sec. Internal carotid artery peak systolic velocity: 95 cm/sec. Internal carotid artery end diastolic velocity: 36 cm/sec. External carotid artery peak systolic velocity: 66 cm/sec. ICA/CCA peak systolic ratio: 1.0. Milner scale imaging description: Mild plaquing at the bifurcation Percent internal carotid artery stenosis: Less than 50%. Vertebral artery: Flow direction is antegrade. IMPRESSION: 1. Less than 50% left internal carotid artery stenosis. 2. No significant right internal carotid stenosis. Dictated by: Kwasi Monae M.D. on 05/30/2019 at 14:00 Approved by: Kwasi Monae M.D. on 05/30/2019 at 14:04
== END ==
PROVIDERS: PCP Family Medicine; Visit Provider Family Medicine
DX: R09.89 Other specified symptoms and signs involving the circulatory and respiratory systems (principal); I65.22 Occlusion and stenosis of left carotid artery
CPT/HCPCS: 93880

== ENCOUNTER → 2019-07-08 13:14 | Outpatient (CLI) | payer MEDICARE, SELFPAY ==
[2018-03-25 16:14] VITALS: BMI 21.6
--- NOTE | 2019-07-08 | DI.RAD.S_ITS ---
PROCEDURE: XR LUMBAR SPINE 2-3V INDICATIONS: LOW BACK PAIN TECHNIQUE: 3 views of the lumbar spine were acquired. COMPARISON: [facility], CT, ABDOMEN W&WO CONTRAST, 05/09/2014, 9:23. [facility], CR, L-SPINE 2-3 VIEWS, 08/03/2008, 13:20. FINDINGS: Bones: 5 nonrib-bearing, lumbar type vertebral bodies are seen. The L3 level demonstrates 40% anterior wedge deformity, which is not significantly changed compared to 2008. No acute fractures are seen. No suspicious lytic or blastic lesions are seen. There is minimal retrolisthesis seen at L1-L2 and L2-L3, with mild retrolisthesis seen at the L3-L4 level. S-shaped scoliotic curvature is seen. There is moderate disc space narrowing seen at L1-L2, with mild disc space narrowing at L2-L3 and L3-L4. Facet arthropathy is seen throughout, which is most prominent inferiorly. Soft tissues: Overlying bowel gas pattern is normal. No suspicious soft tissue calcifications. IMPRESSION: Stable L3 anterior wedge deformity. S-shaped scoliotic curvature and bony degenerative changes noted. Dictated by: Braxton Graff M.D. on 07/08/2019 at 13:12 Approved by: Braxton Graff M.D. on 07/08/2019 at 13:15
== END ==
PROVIDERS: PCP Family Medicine; Referring Provider Family Medicine; Visit Provider Family Medicine
DX: M54.5 Low back pain (principal); M47.816 Spondylosis without myelopathy or radiculopathy, lumbar region; M41.9 Scoliosis, unspecified; M43.8X6 Other specified deforming dorsopathies, lumbar region
CPT/HCPCS: 72100

== ENCOUNTER → 2019-11-21 11:41 | Outpatient (CLI) | payer MEDICARE, OTHER, SELFPAY ==
[2018-03-25 16:14] VITALS: BMI 21.6
--- NOTE | 2019-11-21 | DI.MRI.S_ITS ---
PROCEDURE: MR HEAD/BRAIN WO/W CON INDICATIONS: Dizziness and giddiness TECHNIQUE: Noncontrast axial T1 spin echo, axial T2 fast spin echo, sagittal and axial FLAIR, coronal T2 fast spin echo, axial gradient echo, axial diffusion and ADC through the brain. After the administration of contrast, axial and coronal T1 spin echo with fat saturation through the brain. COMPARISON: [facility], MR, MR BRAIN (IAC) WWO CON, 03/29/2019, 17:03. FINDINGS: Image quality: Excellent. CSF spaces: Basal cisterns are patent. No extra-axial fluid collections. Ventricles are normal in size and shape. Brain: No midline shift. No intracranial bleeds or masses. No abnormal intracranial enhancement. Previously seen regions of vascular enhancement inferior to the cerebellopontine angles is within normal limits and is unchanged. There is cerebral volume loss for age. There is periventricular white matter chronic small vessel ischemic change. The brainstem appears normal. Diffusion-weighted images demonstrate no acute ischemic insults. No chronic ischemic insults. Normal intravascular flow voids are present. Skull and face: Calvarial marrow is normal in signal. Orbits appear normal. Sinuses: Sinuses and mastoids appear clear. IMPRESSION: 1. Volume loss and small vessel ischemic disease. 2. No acute process. No recent infarct. Dictated by: Betzaida Alamo M.D. on 11/21/2019 at 14:48 Approved by: Betzaida Alamo M.D. on 11/21/2019 at 14:49
== END ==
PROVIDERS: PCP Family Medicine; Referring Provider Family Medicine; Visit Provider Family Medicine
DX: R42 Dizziness and giddiness (principal)
CPT/HCPCS: 70553

== ENCOUNTER 2020-04-16 17:22 | Emergency (ER) | payer MEDICARE, OTHER, SELFPAY ==
[2018-03-25 16:14] VITALS: BMI 21.6
[2020-04-16] VITALS (7 sets, daily range): BP systolic 154–173; BP diastolic 74–82; PULSE 61–67; RESP 14–23; O2SAT 93–99; BMI 22.8
--- NOTE | 2020-04-16 17:43 | DI.RAD.S_ITS ---
PROCEDURE: XR CHEST 1V INDICATIONS: chest pain TECHNIQUE: One view of the chest was acquired. COMPARISON: [facility], CR, XR CHEST 1V, 03/25/2018, 13:46. FINDINGS: Surgical changes and devices: None. Lungs and pleura: Lungs are clear. No pleural effusions or pneumothorax. Mediastinum: Mediastinal contours appear normal. Heart size is normal. Bones and chest wall: No suspicious bony lesions. Overlying soft tissues appear unremarkable. IMPRESSION: No acute pulmonary process. Dictated by: Courtney Kidd M.D. on 04/16/2020 at 17:06 Approved by: Courtney Kidd M.D. on 04/16/2020 at 17:07
--- NOTE | 2020-04-16 17:59 | ED.CHESTPAIN ---
HPI - Chest Pain General Chief Complaint: Chest Pain Stated Complaint: rule out cardic/sent by provider Time Seen by Provider: 04/16/20 17:42 Source: patient and family Mode of arrival: Ambulatory Limitations: no limitations History of Present Illness HPI narrative: Patient is a 69 year old female with history of depression presenting today with left arm tingling. She said she had an episode 3 days ago of the same. It starts in her finger tips and goes up to her shoulder. She denies any weakness or chest pain. She states it lasts for up to an hour then goes away. She denies any worsening with movement. She has noticed her blood pressure has been elevated. She also complains of extreme fatigue. She usually walks 9 miles a day and can barley get out of bed. She thought it might be depression but this seems severe. She denies any fever, or cough. But does have some shortness of breath with exertion. She has no known covid exposure. Related Data Home Medications Medication Instructions Recorded Confirmed citalopram [Celexa] 30 mg PO DAILY #0 08/19/16 03/25/18 bupropion HCl 150 mg PO DAILY 03/25/18 03/25/18 Allergies Allergy/AdvReac Type Severity Reaction Status Date / Time latex [LATEX] Allergy Intermediate RASH Verified 03/25/18 20:03 Penicillins [PENICILLINS] Allergy Intermediate RASH Verified 03/25/18 20:03 Review of Systems Review of Systems ROS Unobtainable: All systems reviewed & are unremarkable except as noted in HPI and below Constitutional Constitutional: Denies chills, Reports fatigue, Denies fever(s), Denies lethargy and Denies weakness Eyes Eyes: Denies change in vision, Denies eye discharge, Denies irritation and Denies loss of vision Cardiovascular Cardiovascular: Denies chest pain, Denies irregular heart rhythm, Denies lightheadedness, Denies palpitations, Denies dyspnea, Denies dyspnea on exertion and Denies orthopnea Respiratory Respiratory: Denies cough, Denies dyspnea, Denies dyspnea on exertion and Denies wheezing Gastrointestinal Gastrointestinal: Denies abdominal pain, Denies change in bowel habits, Denies diarrhea, Denies nausea and Denies vomiting Musculoskeletal Musculoskeletal: Denies back pain, Denies myalgias and Denies muscle cramps Integumentary/Breasts Skin/Breast: Denies pruritus, Denies erythema, Denies rash and Denies wounds Neurologic Neurologic: Denies loss of vision and Denies weakness Endocrine Endocrine: Reports fatigue and Denies palpitations Allergic/Immunologic Allergic/Immunologic: Denies wheezing Patient History Medical History Depression Social History household members: spouse Smoking Status: Never smoker Smoking Status: Never smoker alcohol intake frequency: a few times a week Substance Use Type: does not use Exam Initial Vital Signs Initial Vital Signs: Vital Signs Pulse Rate 64 04/16/20 17:25 Respiratory Rate 20 04/16/20 17:25 Blood Pressure 167/82 H 04/16/20 17:25 Pulse Oximetry 95 04/16/20 17:25 Const General: cooperative and well developed Nutritional Appearance: well nourished Resp Effort & Inspection: normal respiratory effort, able to speak in complete sentences, no respiratory distress and no use of accessory muscles Auscultation: clear to auscultation bilaterally, no rales, no rhonchi and no wheezes Cardio Rate: regular rate Rhythm: regular rhythm Heart Sounds: no click, no gallops, no murmurs and no rubs GI Inspection: non-distended Palpation: soft, no hepatosplenomegaly, No guarding, No pulsatile mass and No tender Auscultation: normal bowel sounds Skin General: no rashes or lesions noted, No jaundice and No petechiae Neuro General: patient alert, patient oriented x3, gait normal and no focal motor deficits Cranial Nerves: CN's II-XI intact bilaterally and PERRL Speech: speech normal Motor: muscle tone normal throughout and strength 5/5 throughout Sensory Exam: no sensory deficits noted Extrem General: full ROM, no clubbing, cyanosis or edema, no pedal edema and no calf tenderness Scores NIH Stroke Scale Level of Conciousness: Alert, keenly responsive Ask month/age: Answers both questions correctly. Open/close eyes, close hand: Performs both tasks correctly Best gaze horizontal: Normal Visual more: No visual loss Facial palsy: Normal symetrical movement Left arm drift: No drift for full 10 sec Right arm drift: No drift for full 10 sec Left leg drift: No drift for full 5 sec Right leg drift: No drift for full 5 sec Limb ataxia: Absent Sensory on face/arms/legs: Normal, no sensory loss Best language: No aphasia, normal Dysarthria: Normal Extinction or inattention: No abnormality Total NIH Stroke scale score: 0 PERC Score Age greater than or equal to 50 years: Yes Heart rate greater than or equal to 100 bpm: No Room Air O2 Sat less than 95%: No Unilateral leg swelling: No Recent trauma or surgery: No Hemoptysis: No Prior PE or DVT: No Hormone Use: No Total PERC Score: 1 Course Orders Ordered: ED Orders 04/16/20 17:42 EKG-12 Lead Stat 04/16/20 17:43 XR chest 1V Stat 04/16/20 18:00 Complete Blood Count AUTO DIFF Stat Comprehensive Metabolic Panel Stat D Dimer Stat Lipase Stat Troponin & CK Cardiac Panel Stat 04/16/20 18:11 CT head/brain wo con Stat 04/16/20 18:20 COVID19 Stat Vital Signs Vital signs: Vital Signs - 8 hr 04/16/20 17:25 04/16/20 17:48 04/16/20 18:00 Pulse Rate 64 65 67 Respiratory Rate 20 Blood Pressure 167/82 H Pulse Oximetry 95 93 96 04/16/20 18:30 04/16/20 18:50 04/16/20 19:00 Pulse Rate 63 62 63 Respiratory Rate 23 21 18 Blood Pressure 161/77 H 154/75 H Pulse Oximetry 97 97 99 04/16/20 19:30 Pulse Rate 61 Respiratory Rate 14 Blood Pressure 173/74 H Pulse Oximetry 98 MDM - Chest Pain Lab Data Attestation: I reviewed the patient's lab results. Result diagrams: 04/16/20 18:00 04/16/20 18:00 Labs: Lab Results 04/16/20 04/16/20 04/16/20 Range/Units 18:00 18:00 18:00 WBC 6.3 (4.5-11.0) X10^3/uL RBC 4.40 (4.0-5.2) X10^6/uL Hgb 14.6 (12.0-16.0) g/dL Hct 42.5 (36-46) % MCV 96.6 (80-100) fL MCH 33.3 (26-34) PG MCHC 34.4 (30-36) % RDW 13.0 (11.6-14.8) % Plt Count 181 (150-400) X10^3/uL Neut % (Auto) 54.4 (50-75) % Lymph % (Auto) 31.0 (25-40) % Fannin % (Auto) 9.7 (3-14) % Eos % (Auto) 3.9 (2-4) % Baso % (Auto) 1.0 (0-2) % Neut # (Auto) 3400 (8863-0355) /uL Lymph # (Auto) 1900 (2659-6980) /uL Fannin # (Auto) 600 (0-900) /uL Eos # (Auto) 200 (0-450) /uL Baso # (Auto) 100 (0-100) /uL D-Dimer < 200 (<230) ng/mL Sodium 135 L (137-145) mmol/L Potassium 3.6 (3.4-5.1) mmol/L Chloride 108 H (98-107) mmol/L Carbon Dioxide 25 (22-32) mmol/L BUN 18 H (7-17) mg/dL Creatinine 0.75 (0.52-1.04) mg/dL Estimated GFR > 60.0 (>60) mL/min BUN/Creatinine Ratio 24.0 H (6-22) Glucose 92 (80-110) mg/dL Calcium 8.9 (8.4-10.2) mg/dL Total Bilirubin 0.8 (0.2-1.3) mg/dL AST 32 (14-36) IU/L ALT 25 (<35) IU/L Alkaline Phosphatase 83 (38-126) U/L Total Creatine Kinase 98 (30-135) U/L CK-MB (CK-2) TNP CK-MB (CK-2) Rel Index TNP Troponin I < 0.012 (0.01-0.034) ng/mL Total Protein 7.1 (6.3-8.2) g/dL Albumin 4.3 (3.5-5.0) g/dL Globulin 2.8 (1.7-4.1) g/dL Albumin/Globulin Ratio 1.5 (1.0-2.8) Lipase 119 (23-300) U/L COVID-19 PCR (Negative) 04/16/20 Range/Units 18:20 WBC (4.5-11.0) X10^3/uL RBC (4.0-5.2) X10^6/uL Hgb (12.0-16.0) g/dL Hct (36-46) % MCV (80-100) fL MCH (26-34) PG MCHC (30-36) % RDW (11.6-14.8) % Plt Count (150-400) X10^3/uL Neut % (Auto) (50-75) % Lymph % (Auto) (25-40) % Fannin % (Auto) (3-14) % Eos % (Auto) (2-4) % Baso % (Auto) (0-2) % Neut # (Auto) (7892-5236) /uL Lymph # (Auto) (6011-4794) /uL Fannin # (Auto) (0-900) /uL Eos # (Auto) (0-450) /uL Baso # (Auto) (0-100) /uL D-Dimer (<230) ng/mL Sodium (137-145) mmol/L Potassium (3.4-5.1) mmol/L Chloride (98-107) mmol/L Carbon Dioxide (22-32) mmol/L BUN (7-17) mg/dL Creatinine (0.52-1.04) mg/dL Estimated GFR (>60) mL/min BUN/Creatinine Ratio (6-22) Glucose (80-110) mg/dL Calcium (8.4-10.2) mg/dL Total Bilirubin (0.2-1.3) mg/dL AST (14-36) IU/L ALT (<35) IU/L Alkaline Phosphatase (38-126) U/L Total Creatine Kinase (30-135) U/L CK-MB (CK-2) CK-MB (CK-2) Rel Index Troponin I (0.01-0.034) ng/mL Total Protein (6.3-8.2) g/dL Albumin (3.5-5.0) g/dL Globulin (1.7-4.1) g/dL Albumin/Globulin Ratio (1.0-2.8) Lipase (23-300) U/L COVID-19 PCR Negative (Negative) Imaging Data CT scan - head: Radiologist's Impression: PROCEDURE: CT HEAD/BRAIN WO CON INDICATIONS: left arm tingling TECHNIQUE: Noncontrast 4.5 mm thick angled axial sections acquired from the foramen magnum to the vertex, with coronal and sagittal reformats. For radiation dose reduction, the following was used: automated exposure control, adjustment of mA and/or kV according to patient size. COMPARISON: [facility], MR, MR HEAD/BRAIN WO/W CON, 11/21/2019, 11:53. FINDINGS: Image quality: Excellent. CSF spaces: Basal cisterns are patent. No extra-axial fluid collections. There is mild cerebral volume loss, with resultant ventricular and sulcal prominence. Brain: No intracranial hemorrhage, mass, or mass effect. There are subcortical, periventricular and deep white matter hypodensities consistent with mild chronic small vessel ischemic changes. There is intracranial internal carotid artery atherosclerosis. Skull and face: Calvarium and visualized facial bones are intact, without suspicious lesions. Sinuses: Visualized sinuses and mastoids are clear. IMPRESSION: 1. No acute intracranial abnormality. 2. Mild chronic white matter small vessel ischemic changes and cerebral volume loss. Dictated by: Nayan Mar M.D. on 04/16/2020 at 19:10 Chest x-ray: Radiologist's Impression: PROCEDURE: XR CHEST 1V INDICATIONS: chest pain TECHNIQUE: One view of the chest was acquired. COMPARISON: [facility], CR, XR CHEST 1V, 03/25/2018, 13:46. FINDINGS: Surgical changes and devices: None. Lungs and pleura: Lungs are clear. No pleural effusions or pneumothorax. Mediastinum: Mediastinal contours appear normal. Heart size is normal. Bones and chest wall: No suspicious bony lesions. Overlying soft tissues appear unremarkable. IMPRESSION: No acute pulmonary process. Dictated by: Courtney Kidd M.D. on 04/16/2020 at 17:06 Approved by: Courtney Kidd M.D. on 04/16/2020 at 17:07 ECG Data Attestation: I personally reviewed and interpreted this ECG as follows: Prior ECG tracings: available for review Interpretation: Normal sinus rhythm rate 62 p.r. interval 162 QRS [address] changes MDM Narrative Medical decision making narrative: Patient really has no focal deficit she has some occasional tingling of her left arm without weakness. In his been on going off and on sounds like for the last 3 days. No sign of acute stroke she at no time has chest pain troponin EKG are negative. Her D-dimer is negative along with a low PERC score low risk for PE. Due to her extreme fatigue and shortness of breath with exertion COVID test was done which is negative. She has an appointment with her PCP next week. 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 Howver not indicated for you to stay in the hospital at this time. Also be sure to check her blood pressure once daily and recorded Take Aspirin 81mg daily Please follow up with Dr. Acuña in 2-3 days Return to ER if you should have chest pain, increasing shortness of breath, weakness, numbness or any other concerning symptoms Prescriptions: No Action citalopram [Celexa] 20 MG tablet 30 mg PO DAILY Qty: 0 RF: 0 bupropion HCl 150 mg tablet sustained-release 12 hr 150 mg PO DAILY RF: 0 Referrals: Candelaria Acuña MD [Primary Care Provider] -
[2020-04-16 18:01] LABS: Add Manual Diff / Slide Review NO; Basophils Absolute Auto 100 /uL (0-100); Eosinophils Absolute Auto 200 /uL (0-450); Eosinophils Percent Auto 3.9 % (2-4); Hematocrit 42.5 % (36-46); Hemoglobin 14.6 g/dL (12.0-16.0); Lymphocytes Absolute Auto 1900 /uL (1100-4500); Mean Corpuscular HGB Conc 34.4 % (30-36); Mean Corpuscular Hemoglobin 33.3 PG (26-34); Mean Corpuscular Volume 96.6 fL (80-100); Monocytes Absolute Auto 600 /uL (0-900); Monocytes Percent Auto 9.7 % (3-14); Neutrophils Absolute Auto 3400 /uL (1500-7000); Neutrophils Percent Auto 54.4 % (50-75); Platelet Count 181 X10^3/uL (150-400); White Blood Cell Count 6.3 X10^3/uL (4.5-11.0)
--- NOTE | 2020-04-16 18:01 | PC.NURSE ---
Patient reports epigastric burning on Wednesday, left arm tingling, headache, fatigue and shortness of breath starting Wednesday. Denies chest pain/pressure.
--- NOTE | 2020-04-16 18:11 | DI.CT.S_ITS ---
PROCEDURE: CT HEAD/BRAIN WO CON INDICATIONS: left arm tingling TECHNIQUE: Noncontrast 4.5 mm thick angled axial sections acquired from the foramen magnum to the vertex, with coronal and sagittal reformats. For radiation dose reduction, the following was used: automated exposure control, adjustment of mA and/or kV according to patient size. COMPARISON: [facility], MR, MR HEAD/BRAIN WO/W CON, 11/21/2019, 11:53. FINDINGS: Image quality: Excellent. CSF spaces: Basal cisterns are patent. No extra-axial fluid collections. There is mild cerebral volume loss, with resultant ventricular and sulcal prominence. Brain: No intracranial hemorrhage, mass, or mass effect. There are subcortical, periventricular and deep white matter hypodensities consistent with mild chronic small vessel ischemic changes. There is intracranial internal carotid artery atherosclerosis. Skull and face: Calvarium and visualized facial bones are intact, without suspicious lesions. Sinuses: Visualized sinuses and mastoids are clear. IMPRESSION: 1. No acute intracranial abnormality. 2. Mild chronic white matter small vessel ischemic changes and cerebral volume loss. Dictated by: Nayan Mar M.D. on 04/16/2020 at 19:10 Approved by: Nayan Mar M.D. on 04/16/2020 at 19:11
[2020-04-16 18:13] LABS: Alanine Aminotransferase 25 IU/L (<35); Albumin 4.3 g/dL (3.5-5.0); Albumin Globulin Ratio 1.5 (1.0-2.8); Alkaline Phosphatase 83 U/L (38-126); Aspartate Aminotransferase 32 IU/L (14-36); Bilirubin Total 0.8 mg/dL (0.2-1.3); Blood Urea Nitrogen 18 mg/dL (7-17); Calcium 8.9 mg/dL (8.4-10.2); Carbon Dioxide 25 mmol/L (22-32); Chloride 108 mmol/L (98-107); Creatine Kinase 98 U/L (30-135); Estimated Glomerular Filt Rate > 60.0 mL/min (>60); Globulin 2.8 g/dL (1.7-4.1); Glucose 92 mg/dL (80-110); HEMOLYSIS 32 (0-50); Lipase 119 U/L (23-300); Potassium 3.6 mmol/L (3.4-5.1); Sodium 135 mmol/L (137-145); Total Protein 7.1 g/dL (6.3-8.2)
[2020-04-16 18:25] LABS: Troponin I < 0.012 ng/mL (0.01-0.034)
[2020-04-16 18:54] LABS: COVID19 -Nasal RAPID Negative (Negative)
[2020-04-16 19:42] LABS: D Dimer < 200 ng/mL (<230)
== END 2020-04-16 19:57 | disposition home or self-care (01) ==
PROVIDERS: Emergency Medicine; Emergency Provider Emergency Medicine; PCP Family Medicine
DX: R20.2 Paresthesia of skin (principal); R07.9 Chest pain, unspecified; F32.9 Major depressive disorder, single episode, unspecified; I10 Essential (primary) hypertension
CPT/HCPCS: 36415; 70450; 71045; 80053; 82550; 83690; 84484; 85025; 85379; 87635; 93005; 93010; 99283; 99284

== ENCOUNTER → 2020-05-31 12:29 | Outpatient (CLI) | payer MEDICARE, OTHER, SELFPAY ==
[2018-03-25 16:14] VITALS: BMI 21.6
--- NOTE | 2020-05-31 12:33 | DI.RAD.S_ITS ---
PROCEDURE: XR ANKLE LT MIN 3V INDICATIONS: LEFT ANKLE PAIN TECHNIQUE: 3 views of the ankle were acquired. COMPARISON: None. FINDINGS: Bones: Cortical irregularity and lucency involving the tip the lateral malleolus. Scattered degenerative subchondral sclerosis and spurring. Plantar calcaneal spur Soft tissues: Soft tissue swelling overlying the lateral malleolus. IMPRESSION: Lateral malleolar tip fracture with overlying soft tissue swelling. Dictated by: Sarmad Landon M.D. on 05/31/2020 at 13:02 Approved by: Sarmad Landon M.D. on 05/31/2020 at 13:05
== END ==
PROVIDERS: PCP Family Medicine; Referring Provider Family Medicine; Visit Provider Family Medicine
DX: M25.572 Pain in left ankle and joints of left foot (principal); S82.62XA Displaced fracture of lateral malleolus of left fibula, initial encounter for closed fracture; X58.XXXA Exposure to other specified factors, initial encounter
CPT/HCPCS: 73610

== ENCOUNTER → 2020-07-12 13:26 | Outpatient (CLI) | payer MEDICARE, OTHER, SELFPAY ==
[2018-03-25 16:14] VITALS: BMI 21.6
--- NOTE | 2020-07-12 13:32 | DI.RAD.S_ITS ---
PROCEDURE: XR ANKLE LT MIN 3V INDICATIONS: LT ANKLE TECHNIQUE: 3 views of the ankle were acquired. COMPARISON: [facility], CR, XR ANKLE LT MIN 3V, 05/31/2020, 12:35. FINDINGS: Bones: Fracture alignment is stable and fracture lucency is less distinct indicating healing of the lateral distal fibular tip fracture. Ankle mortise is symmetric. Soft tissues: No tibiotalar joint effusion. Achilles tendon appears normal. IMPRESSION: Slight further healing of distal fibular tip fracture. Dictated by: Abhi Laird [facility] Interpreted: Timothy Delarosa MD on 07/12/2020 at 15:37 Approved by: Timothy Delarosa M.D. on 07/12/2020 at 16:07
== END ==
PROVIDERS: PCP Family Medicine; Referring Provider Family Medicine; Visit Provider Family Medicine
DX: S82.65XA Nondisplaced fracture of lateral malleolus of left fibula, initial encounter for closed fracture (principal); X58.XXXA Exposure to other specified factors, initial encounter
CPT/HCPCS: 73610

== ENCOUNTER → 2020-08-12 12:54 | Outpatient (CLI) | payer MEDICARE, OTHER, SELFPAY ==
[2018-03-25 16:14] VITALS: BMI 21.6
--- NOTE | 2020-08-12 | DI.RAD.S_ITS ---
PROCEDURE: XR ANKLE LT MIN 3V INDICATIONS: LEFT PAIN ANKLE TECHNIQUE: 3 views of the ankle were acquired. COMPARISON: [facility], CR, XR ANKLE LT MIN 3V, 07/12/2020, 13:33. [facility], CR, XR ANKLE LT MIN 3V, 05/31/2020, 12:35. FINDINGS: Bones: No previously unidentified fractures or dislocations. Ankle mortise is normally aligned. No suspicious bony lesions. The lateral malleolar tip fracture is again noted and the current imaging appears to show a nondisplaced fracture transverse in its orientation, 9 mm cephalad from the lateral malleolar tip. Soft tissues: No tibiotalar joint effusion. Achilles tendon appears normal. IMPRESSION: There is a fracture that is transverse in orientation 9 mm above the lateral malleolar tip, left ankle, showing evidence of healing as indicated by a reduced degree of soft tissue swelling in this area, and also blurring of the fracture margins. Dictated by: Hoang Archer M.D. on 08/12/2020 at 14:31 Approved by: Hoang Archer M.D. on 08/12/2020 at 14:36
== END ==
PROVIDERS: PCP Family Medicine; Referring Provider Family Medicine; Visit Provider Family Medicine
DX: M25.572 Pain in left ankle and joints of left foot (principal); S82.62XD Displaced fracture of lateral malleolus of left fibula, subsequent encounter for closed fracture with routine healing; X58.XXXD Exposure to other specified factors, subsequent encounter
CPT/HCPCS: 73610

== ENCOUNTER → 2020-09-23 09:54 | Outpatient (CLI) | payer MEDICARE, OTHER, SELFPAY ==
[2018-03-25 16:14] VITALS: BMI 21.6
--- NOTE | 2020-09-23 | DI.RAD.S_ITS ---
PROCEDURE: XR FOOT LT MIN 3V INDICATIONS: L foot ankle pain TECHNIQUE: 3 views of the foot were acquired. COMPARISON: None. FINDINGS: Bones: No fracture identified. Mild 1st MTP osteoarthritis . Dorsal talonavicular osteoarthritis. Plantar calcaneal spur. Soft tissues: No tibiotalar joint effusion. Achilles tendon appears normal. IMPRESSION: Mild diffuse osteoarthritis Plantar calcaneal spur Dictated by: Sarmad Landon M.D. on 09/23/2020 at 12:05 Approved by: Sarmad Landon M.D. on 09/23/2020 at 12:07
--- NOTE | 2020-09-23 | DI.RAD.S_ITS ---
PROCEDURE: XR ANKLE LT MIN 3V INDICATIONS: left ankle and foot pain TECHNIQUE: 3 views of the ankle were acquired. COMPARISON: [facility], CR, XR ANKLE LT MIN 3V, 07/12/2020, 13:33. [facility], CR, XR ANKLE LT MIN 3V, 05/31/2020, 12:35. [facility], CR, XR ANKLE LT MIN 3V, 08/12/2020, 13:49. FINDINGS: Bones: A lateral malleolar tip fracture is again noted and grossly unchanged. Tibiotalar osteoarthritis, mild. Diffuse midfoot degenerative spurring and sclerosis. Plantar calcaneal spur. Soft tissues: No tibiotalar joint effusion. Achilles tendon appears normal. IMPRESSION: Overall, unchanged alignment of lateral malleolar tip fracture. Dictated by: Sarmad Landon M.D. on 09/23/2020 at 12:03 Approved by: Sarmad Landon M.D. on 09/23/2020 at 12:05
== END ==
PROVIDERS: PCP Family Medicine; Referring Provider Family Medicine; Visit Provider Family Medicine
DX: M25.572 Pain in left ankle and joints of left foot (principal); S82.62XA Displaced fracture of lateral malleolus of left fibula, initial encounter for closed fracture; M19.072 Primary osteoarthritis, left ankle and foot; M77.32 Calcaneal spur, left foot; X58.XXXA Exposure to other specified factors, initial encounter
CPT/HCPCS: 73610; 73630

== ENCOUNTER → 2021-02-06 14:40 | Outpatient (CLI) | payer MEDICARE, OTHER, SELFPAY ==
[2018-03-25 16:14] VITALS: BMI 21.6
--- NOTE | 2021-02-06 | DI.MG.S_ITS ---
BILATERAL DIGITAL SCREENING MAMMOGRAM 3D/2D WITH CAD: 02/06/2021 CLINICAL: Routine screening. Comparison is made to exams dated: 10/19/2018 mammogram, 09/03/2017 mammogram, and 07/07/2016 mammogram - [facility]. The tissue of both breasts is heterogeneously dense. This may lower the sensitivity of mammography. Current study was also evaluated with a Computer Aided Detection (CAD) system. No significant masses, calcifications, or other findings are seen in either breast. There has been no significant interval change. IMPRESSION: NEGATIVE There is no mammographic evidence of malignancy. A 1 year screening mammogram is recommended. This exam was interpreted at Station ID: [id number]. NOTE: For mammograms, a report in lay terms will be sent to the patient. Approximately 15% of breast malignancies will not be visualized mammographically. In the management of a palpable breast mass, a negative mammogram must not discourage biopsy of a clinically suspicious lesion. Electronically Signed By: Nayan gregory/ashwini:02/06/2021 16:00:01 letter sent: Normal Exam ACR BI-RADS Category 1: Negative [id number]
== END ==
PROVIDERS: PCP Family Medicine; Referring Provider Family Medicine; Visit Provider Family Medicine
DX: Z12.31 Encounter for screening mammogram for malignant neoplasm of breast (principal)
CPT/HCPCS: 77063; 77067

== ENCOUNTER → 2022-02-24 16:42 | Outpatient (CLI) | payer MEDICARE, OTHER, SELFPAY ==
[2018-03-25 16:14] VITALS: BMI 21.6
--- NOTE | 2022-02-24 16:45 | DI.MG.S_ITS ---
BILATERAL DIGITAL SCREENING MAMMOGRAM 3D/2D WITH CAD: 02/24/2022 CLINICAL: Routine screening. Comparison is made to exams dated: 02/06/2021 mammogram, 10/19/2018 mammogram, and 09/03/2017 mammogram - [facility]. Both breasts are heterogeneously dense, which may obscure small masses (category c / 51-75% glandular tissue). Current study was also evaluated with a Computer Aided Detection (CAD) system. No significant masses, calcifications, or other findings are seen in either breast. There has been no significant interval change. IMPRESSION: NEGATIVE There is no mammographic evidence of malignancy. A 1 year screening mammogram is recommended. Based on the Tyrer Cuzick model (a risk assessment model) the patient's lifetime risk is 6.6% and her 10 year risk is 4.9%. According to the ACR, ACS, and NCCN guidelines, an annual breast MRI exam along with mammogram is recommended if the patient's lifetime risk is 20% or greater. This exam was interpreted at Station ID: [id number]. NOTE: For mammograms, a report in lay terms will be sent to the patient. Approximately 15% of breast malignancies will not be visualized mammographically. In the management of a palpable breast mass, a negative mammogram must not discourage biopsy of a clinically suspicious lesion. Electronically Signed By: Paramjit Wayne M.D., jr/ashwini:02/25/2022 12:48:42 letter sent: Normal Exam ACR BI-RADS Category 1: Negative [id number]
== END ==
PROVIDERS: PCP Family Medicine; Referring Provider Family Medicine; Visit Provider Family Medicine
DX: Z12.31 Encounter for screening mammogram for malignant neoplasm of breast (principal)
CPT/HCPCS: 77063; 77067

== ENCOUNTER → 2022-03-19 10:33 | Outpatient (CLI) | payer MEDICARE, OTHER, SELFPAY ==
[2018-03-25 16:14] VITALS: BMI 21.6
== END ==
PROVIDERS: PCP Family Medicine; Referring Provider Family Medicine; Visit Provider Family Medicine
DX: Z13.820 Encounter for screening for osteoporosis (principal); Z78.0 Asymptomatic menopausal state; M81.0 Age-related osteoporosis without current pathological fracture
CPT/HCPCS: 77080

== ENCOUNTER 2022-06-30 07:09 | Day surgery (SDC) | payer MEDICARE, OTHER, SELFPAY ==
[2018-03-25 16:14] VITALS: BMI 21.6
[2022-06-30 07:25] VITALS: BP 137/81; PULSE 68; RESP 14; TEMP 36.1; O2SAT 98; BMI 23.3
[2022-06-30] MEDS: LACTATED RINGERS 1,000 ML 200 ML IV (07:41)
--- NOTE | 2022-06-30 08:12 | PM.HP.1 ---
History of Present Illness History of Present Illness Date Patient Seen: 06/30/22 Time Patient Seen: 08:13 Chief complaint: SCREENING COLONOSCOPY Narrative: The patient presents for colorectal screening. She is a personal history of colonic polyps last colonoscopy was approximately 5 years ago.. No personal or family history of colon cancer. On further history denies any recent gastrointestinal symptoms. No nausea, vomiting, abdominal pain, loss of appetite, unexplained weight loss, change in bowel habits, or blood per rectum. Patient History Medical History Depression Family & Social History Social History: household members spouse Tobacco & Substance use: Smoking Status Never smoker alcohol intake current alcohol intake frequency 0-2 drinks per day Substance Use Type does not use Meds Home Medications and Allergies Home Medications Medication Instructions Recorded Confirmed Type citalopram 20 mg tablet (Celexa) 30 mg PO DAILY ##0 08/19/16 06/30/22 History bupropion HCl 150 mg tablet,12 hr 150 mg PO DAILY 03/25/18 06/30/22 History sustained-release Allergies Allergy/AdvReac Type Severity Reaction Status Date / Time latex [LATEX] Allergy Intermediate RASH Verified 03/25/18 20:03 Penicillins [PENICILLINS] Allergy Intermediate RASH Verified 03/25/18 20:03 Exam Vital Signs (past 8 hours): - 06/30/22 07:25 Temperature 97.0 F L Pulse Rate 68 Respiratory Rate 14 Blood Pressure 137/81 Pulse Oximetry 98 Oxygen Delivery Method Room Air Oxygen Delivery Method Room Air Narrative Exam Narrative: General adult woman alert oriented no acute distress Assessment & Plan Assessment and plan (1) Personal history of colonic polyps: Status: Acute Assessment & Plan narrative: The patient requires colorectal screening and colonoscopy is recommended. Technical details were discussed. Risks, benefits, alternatives explained. Risks including but not limited to myocardial infarction, aspiration, bleeding, pain, missed lesion, incomplete examination, need for further radiographic studies, colonic perforation, and need for major abdominal surgery were discussed. All questions were answered to their satisfaction, and they are in agreement with this plan. Time Spent With Patient Critical Care time: I spent a total of [] minutes of critical care time on this patient's care today; this time is exclusive of procedural time.
--- NOTE | 2022-06-30 08:14 | PM.OP.COLON ---
Operative Date/Time/Diagnoses Date of procedure: 06/30/22 Time of procedure: 08:14 Pre-op diagnosis: Personal history of colonic polyps Post-op diagnosis: same Procedure & Clinicians Study performed: Colonoscopy Same procedure as scheduled: Yes Indications: Personal history of colonic polyps Surgeon: Raz Dos Santos Procedure Notes Procedure in detail: The history and physical was performed/updated and the patient is ASA class is 2. The procedure was discussed in detail with the patient. Potential risks complications including infection, bleeding, missed diagnosis, perforation, need for surgery, and were explained. Their questions were answered and informed consent was obtained. Patient was brought to the procedure room and placed standard monitoring equipment. The patient's vital signs were monitored continuously throughout the entire procedure. Prior to starting time-out was performed. The patient was placed in the left lateral recumbent position. Procedural sedation was administered by anesthesia. Examination began with a thorough inspection of the perianal area there was no evidence of fissures, fistulae, external hemorrhoids or cutaneous malignancy. The colonoscopy scope was then placed into the anal canal and was advanced to the cecum, which was identified by the ileocecal valve, the appendiceal orifice and the confluence of the taenia. The scope was then slowly withdrawn examining colon thoroughly in all directions, irrigating it of any residual stool. 1. No masses or polyps 2. Internal hemorrhoids The patient tolerated the procedure well. They will be discharged once criteria are met. The prep was of good/excellent quality. The withdrawl time was 6 minutes. Specimen(s): none sent Impression: Normal colonoscopy Post-procedure Recommendations: Colonoscopy in 10 years and High fiber diet Disposition: same day surgery
[2022-06-30 08:39] VITALS: BP 109/62; PULSE 68; RESP 16; TEMP 36.9; O2SAT 95
[2022-06-30 08:43] VITALS: BP 123/76; PULSE 59; RESP 12; O2SAT 97
[2022-06-30 08:51] VITALS: BP 134/81; PULSE 59; RESP 68; O2SAT 16
[2022-06-30 08:53] VITALS: BP 158/75; PULSE 74; RESP 16; TEMP 36.4; O2SAT 98
--- NOTE | 2022-06-30 09:14 | SUR.PHASEII ---
0910: Pt A&ox4, denies any distress and ready to discharge home. Discharge instructions reviewed with pt with time allowed for questions. IV DC'd intact, abdomen soft, VSS. Pt left unit with all personal belongings and written instructions via w/c to ER entrance where spouse will transport pt home.
== END 2022-06-30 09:16 | disposition home or self-care (01) ==
PROVIDERS: PCP Family Medicine; Referring Provider Surgery; Visit Provider Surgery
PROC: 0DJD8ZZ Inspection of Lower Intestinal Tract, Via Natural or Artificial Opening Endoscopic (ICD-10-PCS; CPT 45378; principal; 2022-06-30 08:15)
DX: Z12.11 Encounter for screening for malignant neoplasm of colon (principal); Z86.010 Personal history of colon polyps; K64.8 Other hemorrhoids
CPT/HCPCS: G0105; J2704; J3010

== ENCOUNTER 2022-08-14 21:57 | Emergency (ER) | payer MEDICARE, OTHER, SELFPAY ==
[2018-03-25 16:14] VITALS: BMI 21.6
[2022-08-14 22:02] VITALS: BP 110/71; PULSE 77; RESP 20; TEMP 36.9; O2SAT 95; BMI 23.3
[2022-08-14 22:44] VITALS: BP 144/62; PULSE 77; O2SAT 97
--- NOTE | 2022-08-14 22:53 | ED.FALL ---
HPI - Fall General Chief Complaint: Fall Stated Complaint: Fall, lac on face Time Seen by Provider: 08/14/22 22:53 Source: patient and family Mode of arrival: Wheelchair History of Present Illness HPI Narrative: 72-year-old female nonsmoker occasional drinker with non contributory chronic medical problem presents with family in the chief complaint of an accidental ground level fall just prior to arrival. She states she admits to having at least 3 or 4 alcoholic beverages tonight and lost her balance on some slick delaney and tripped and fell forward striking her knees and also her face and head. She does not think she lost consciousness and if she did it was quite brief. She denies any blurred vision or trouble with speech. She has no neck or back pain. She denies any injury to shoulders, elbows or wrists and though she landed on her knees denies much in the way of pain. She does have some abrasion and superficial laceration to her right cheek. She denies any nosebleed or trouble breathing through either nostril. She denies any malocclusion. Related Data Home Medications Medication Instructions Recorded Confirmed citalopram 20 mg tablet (Celexa) 30 mg PO DAILY ##0 08/19/16 06/30/22 bupropion HCl 150 mg tablet,12 hr 150 mg PO DAILY 03/25/18 06/30/22 sustained-release Allergies Allergy/AdvReac Type Severity Reaction Status Date / Time latex [LATEX] Allergy Intermediate RASH Verified 03/25/18 20:03 Penicillins [PENICILLINS] Allergy Intermediate RASH Verified 03/25/18 20:03 Review of Systems Review of Systems Narrative: GENERAL: Denies chills, fatigue, malaise, fever, sweats. HEENT: Denies sinus pain, ear pain, sore throat, difficulty swallowing, dizziness. RESPIRATORY: Denies dyspnea, cough, wheezing, hemoptysis, sputum. CARDIOVASCULAR: Denies chest pain, palpitations, orthopnea, edema, GASTROINTESTINAL: Denies nausea, vomiting, abdominal pain, diarrhea, constipation, melena. : Denies dysuria, frequency, incontinence, hematuria, urinary retention. MUSCULOSKELETAL: See HPI SKIN: See HPI NEUROLOGIC: Denies weakness, headache, numbness, change in speech, confusion, seizures, incoordination. PSYCHIATRIC: No concerning psychosocial issues. 12 point review of systems is negative except for those stated above Patient History Medical History Depression Social History household members: spouse Smoking Status: Never smoker alcohol intake: current Smoking Status: Never smoker alcohol intake frequency: 0-2 drinks per day Alcohol type: wine Substance Use Type: does not use Exam Narrative Exam Narrative: GENERAL: [72] year old patient appears stated age. Well-developed patient, in mild distress. GCS 15, there is some slurring of words HEAD: Superficial abrasions and a small cut on right cheek, no other contusion or laceration, no evidence of depressed skull fracture EYES: Pupils equal round and reactive. Extraocular motions intact. No scleral icterus. No injection or drainage. ENT: Nose without bleeding, purulent drainage. Throat without erythema, tonsillar hypertrophy or exudate. Airway patent. No intraoral injury is obvious, no malocclusion NECK: Trachea midline. Non tender no step-offs or crepitance CARDIOVASCULAR: Regular rate and rhythm without murmurs, gallops, or rubs. RESPIRATORY: Clear to auscultation. Breath sounds equal bilaterally. No wheezes, rales, or rhonchi. GASTROINTESTINAL: Abdomen soft, non-tender, nondistended. EXTREMITIES: No edema or joint tenderness. BACK: Nontender without deformity or crepitance. No flank tenderness. NEURO: AOx3. Cranial nerves 2-12 grossly intact SKIN: No rash or erythema of visible areas, small but relatively deep flap shaped laceration on right cheek measuring approximately 0.3 cm but bleeding and will require suture Initial Vital Signs Initial Vital Signs: Vital Signs Temperature 98.4 F 08/14/22 22:02 Pulse Rate 77 08/14/22 22:02 Respiratory Rate 20 08/14/22 22:02 Blood Pressure 110/71 08/14/22 22:02 Pulse Oximetry 95 08/14/22 22:02 Oxygen Delivery Method Room Air 08/14/22 22:02 Procedures Laceration Repair Laceration 1: Site: face Side (If applicable): right Size (cm): 0.3 Description: flap Depth: simple, single layer Local Anesthetic: lidocaine 1% Amount of anesthesia used (mL): 3 Pre-repair: wound explored and cleansed with chlorhexadine Skin layer closed with: nylon Skin layer suture size: 6-0 Number of sutures: 2 Technique: simple, interrupted Course Orders Ordered: ED Orders 08/14/22 22:59 CT cervical spine wo con Stat CT head/brain wo con Stat Vital Signs Vital signs: Vital Signs - 8 hr 08/14/22 22:02 08/14/22 22:44 08/14/22 22:44 Temperature 98.4 F Pulse Rate 77 77 Respiratory Rate 20 Blood Pressure 110/71 144/62 H Pulse Oximetry 95 97 Oxygen Delivery Method Room Air 08/14/22 23:00 08/14/22 23:09 08/14/22 23:09 Temperature Pulse Rate 77 77 Respiratory Rate Blood Pressure 118/59 L Pulse Oximetry 95 96 Oxygen Delivery Method 08/14/22 23:30 08/14/22 23:30 Temperature Pulse Rate 73 Respiratory Rate Blood Pressure 112/55 L Pulse Oximetry 95 Oxygen Delivery Method MDM - Fall MDM Narrative Medical decision making narrative: [72] year old patient presents with ground level fall and injuries secondary to this fall, patient has been drinking Multiple etiologies for patient's symptoms considered including, but not limited to: [Intracranial hemorrhage, cervical fracture, facial laceration versus other] Prior Charts reviewed in our EMR Primary Historian: patient Imaging reviewed: Head CT without acute process, CT of cervical spine without fracture or dislocation but there is note of right-sided thyroid mass, patient states she already knows about this Patient with ground level fall and alcohol on board, head CT indicated given alcohol, age, unable to clear C-spine due to presence of alcohol and although minimal there is a distracting injury. Thankfully these images are reassuring without significant abnormal findings. Small laceration repaired on her face. Patient given return precautions, family at the bedside have also had questions answered to their apparent satisfaction. Findings and discharge diagnosis discussed with patient/family followed by verbalization of understanding Return precautions discussed with patient/family whom verbalize understanding of diagnosis and plan Discharge Plan Departure Patient Disposition: Home Clinical Impression: Facial laceration, Abrasion of knee, Mass of thyroid gland Instructions: How to Prevent Falls Activity Restrictions/Additional Instructions: *You have been diagnosed with [fall with minor injuries including facial laceration requiring 2 sutures. As we discussed otherwise your history and physical exam as well as CT scan of face and neck are reassuring and there is no evidence of bleeding or fracture.] *What to do: *Please continue to take your regular medications as directed. [ ] New medication prescriptions sent to your pharmacy: [ ] [ ] New medication written as a paper prescription [ ] No new medications given * Please keep the wound clean and dry to the best of your ability. Please monitor for signs of infection such as redness to the skin or increasing pain. Have the sutures/milo removed by your doctor in about 5-7 days. If you are unable to get into your doctor, we would be happy to remove the sutures/milo in that same timeframe. * as we discussed there is likely an incidental finding on your CT scan of your neck of a possible thyroid mass and radiology recommends follow-up as an outpatient with a thyroid ultrasound, Dr. Acuña can help you arrange this *Return to Emergency Department if you should have any new, worsening or concerning symptoms, such as [fever greater than 101 F, shaking chills, worsening pain, persistent vomiting or other bothersome symptoms] Prescriptions: No Action citalopram [Celexa] 20 MG tablet 30 mg PO DAILY Qty: 0 bupropion HCl 150 mg tablet sustained-release 12 hr 150 mg PO DAILY Referrals: Candelaria Acuña MD [Primary Care Provider] - Stand Alone Forms: Patient Portal/API
--- NOTE | 2022-08-14 22:59 | DI.CT.S_ITS ---
PROCEDURE: CT CERVICAL SPINE WO CON INDICATIONS: fall with head injury, alcohol TECHNIQUE: Noncontrast 3 mm thick sections acquired from the skull base to the T4 level. Sagittal and coronal reformats were then constructed. For radiation dose reduction, the following was used: automated exposure control, adjustment of mA and/or kV according to patient size. COMPARISON: [facility], US THYROID/DOPPLER VASCULAR LIMITED, 03/03/2005, 8:56. FINDINGS: Image quality: There is mild motion artifact. Bones: No fractures or subluxation. There is straightening of the cervical lordosis. Multilevel degenerative disc disease and facet joint arthropathy are present. Visualized superior ribs are intact. Soft tissues: Prevertebral soft tissues are normal in thickness. No paravertebral hematomas. No apical pneumothoraces. There is a heterogeneous right thyroid mass measuring up to 3.6 x 2.7 cm in transverse dimension. IMPRESSION: 1. No acute fracture or subluxation. 2. Heterogeneous right thyroid mass. Recommend follow-up evaluation with thyroid ultrasound if clinically indicated. Dictated by: Nayan Mar M.D. on 08/14/2022 at 23:35 Approved by: Nayan Mar M.D. on 08/14/2022 at 23:38
--- NOTE | 2022-08-14 22:59 | DI.CT.S_ITS ---
PROCEDURE: CT HEAD/BRAIN WO CON INDICATIONS: fall, head injury, alcohol TECHNIQUE: Noncontrast 4.5 mm thick angled axial sections acquired from the foramen magnum to the vertex, with coronal and sagittal reformats. For radiation dose reduction, the following was used: automated exposure control, adjustment of mA and/or kV according to patient size. COMPARISON: [facility], CT, CT HEAD/BRAIN WO CON, 04/16/2020, 18:36. FINDINGS: Image quality: Excellent. CSF spaces: Basal cisterns are patent. There is mild cerebral volume loss, with resultant ventricular and sulcal prominence. There is a small left choroidal fissure cyst redemonstrated. Brain: No intracranial hemorrhage, mass, or mass effect. There are subcortical, periventricular and deep white matter hypodensities consistent with mild chronic small vessel ischemic changes. The santos-white matter junction appears preserved. There is intracranial internal carotid artery atherosclerosis. Skull and face: Calvarium and visualized facial bones appear intact, without suspicious lesions. Sinuses: Visualized sinuses demonstrate mild mucosal thickening within the maxillary sinuses. Mastoid air cells are clear. IMPRESSION: 1. No acute intracranial abnormality. 2. Mild chronic white matter small vessel ischemic changes and cerebral volume loss. Dictated by: Nayan Mar M.D. on 08/14/2022 at 23:34 Approved by: Nayan Mar M.D. on 08/14/2022 at 23:34
[2022-08-14 23:00] VITALS: PULSE 77; O2SAT 95
[2022-08-14 23:09] VITALS: BP 118/59; PULSE 77; O2SAT 96
[2022-08-14 23:30] VITALS: BP 112/55; PULSE 73; O2SAT 95
== END 2022-08-14 23:51 | disposition home or self-care (01) ==
PROVIDERS: Emergency Provider Emergency Medicine; PCP Family Medicine
DX: S01.81XA Laceration without foreign body of other part of head, initial encounter (principal); S80.212A Abrasion, left knee, initial encounter; S80.211A Abrasion, right knee, initial encounter; E07.9 Disorder of thyroid, unspecified; W18.30XA Fall on same level, unspecified, initial encounter
CPT/HCPCS: 12011; 70450; 72125; 99284

== ENCOUNTER → 2022-08-21 10:02 | Outpatient (CLI) | payer MEDICARE, OTHER, SELFPAY ==
[2018-03-25 16:14] VITALS: BMI 21.6
--- NOTE | 2022-08-21 | DI.US.S_ITS ---
PROCEDURE: US THYROID INDICATIONS: Nontoxic single thyroid nodule TECHNIQUE: Real-time scanning was performed of the thyroid gland, with image documentation. COMPARISON: [facility], , US THYROID/DOPPLER VASCULAR LIMITED, 03/03/2005, 8:56. FINDINGS: Right: Thyroid lobe measures 7.9 x 2.3 x 2.1 cm, and is heterogeneous in echotexture. Left: Thyroid lobe measures 5.7 x 1.4 x 1.3 cm, and is heterogeneous in echotexture. Isthmus: 1 mm thick. Nodule number: 1 Location: Lower pole right thyroid lobe Size: 2.6 x 1.8 x 1.5 cm. Composition: Predominantly solid Echogenicity: I so to hypoechoic Shape: Wider than tall Margins: Lobulated Echogenic foci: None Total points: 4 ACR TI-RADS category: Moderately suspicious. Nodule number: 2 Location: Lower pole right thyroid lobe Size: 3.2 x 1.6 x 1.4 cm. Composition: Predominantly solid Echogenicity: Hyper to isoechoic Shape: Wider than tall Margins: Smooth Echogenic foci: None Total points: 3 ACR TI-RADS category: Mildly suspicious. Nodule number: 3 Location: Lower pole right thyroid lobe Size: 2.3 x 1.4 x 1.5 cm. Composition: Solid Echogenicity: Isoechoic Shape: Wider than tall Margins: Smooth Echogenic foci: Macroscopic Total points: 4 ACR TI-RADS category: Moderately suspicious Nodule number: 4 Location: Upper pole right thyroid lobe Size: 1.1 x 1.2 x 0.9 cm, previously 1.5 x 1.3 x 0.9 cm Composition: Solid Echogenicity: Isoechoic Shape: Wider than tall Margins: Smooth Echogenic foci: Punctate. Total points: 6 ACR TI-RADS category: Moderately suspicious. Nodule number: 5 Location: Mid pole of left thyroid lobe Size: 0.9 x 0.7 x 0.9 cm Composition: Solid Echogenicity: Isoechoic Shape: Wider than tall Margins: Smooth Echogenic foci: None Total points: 3 ACR TI-RADS category: Mildly suspicious IMPRESSION: 1. Bilateral thyroid nodule is seen within large right thyroid lobe and diffusely heterogeneous echotexture. Consider fine-needle aspiration of lower pole of right thyroid lobe nodules for further evaluation if not previously done. ACR TI-RADS definitions and recommendations: TI-RADS 1 (benign): 0 points. FNA not needed. TI-RADS 2 (not suspicious): 2 points. FNA not needed. TI-RADS 3 (mildly suspicious): 3 points. * FNA if 2.5 cm or larger, follow up if 1.5 cm or larger (at 1, 3, and 5 years). TI-RADS 4 (moderately suspicious): 4-6 points. * FNA if 1.5 cm or larger, follow up if 1 cm or larger (at 1, 2, 3, and 5 years). TI-RADS 5 (highly suspicious): 7 points or more. * FNA if 1 cm or larger, follow up if 0.5 cm or larger (every year for 5 years). Dictated by: Richard Trevino M.D. on 08/21/2022 at 14:44 Approved by: Richard Trevino M.D. on 08/21/2022 at 14:57
== END ==
PROVIDERS: PCP Family Medicine; Referring Provider Family Medicine; Visit Provider Family Medicine
DX: E04.2 Nontoxic multinodular goiter (principal)
CPT/HCPCS: 76536

== ENCOUNTER → 2022-10-09 12:21 | Outpatient (CLI) | payer MEDICARE, OTHER, SELFPAY ==
[2018-03-25 16:14] VITALS: BMI 21.6
--- NOTE | 2022-10-09 | DI.ECHO.S_ITS ---
[facility]---------+ [facility] +---------+ : : [address] [place] [place] : : : : [id number] : : : : Phone: [phone]+ Echocardiogram Report + + :Name: ANUPAMA GOODRICH Study Date: 10/09/2022 Height: 66 in : :[facility] ReadingLocation: Weight: 140 lb : : Gender: Female BSA: 1.7 m2 : :: 1950 Age: 72 yrs BP: 114/75 mmHg: :Reason For Study: SYNCOPE AND COLLAPSE HR: 60 : :Ordering Physician: RG, : :LIYAH Performed By: JEANINE GREENE : :Referring: LIYAH DIEZ : + + Interpretation Summary The left ventricle is normal in size and wall thickness. Left ventricular systolic function is normal. The ejection fraction is estimated to be 55-60%. There are no focal wall motion abnormalities. Diastolic parameters suggest probable normal left ventricular diastolic function and normal filling pressures. The right ventricle is normal in size and function. The right ventricular systolic pressure is estimated to be at least 18 mmHg based on an estimated right atrial pressure of 3 mm Hg. Both atria are normal in size. There is no significant valvular heart disease. The aortic root is normal size. Procedure: A two-dimensional transthoracic echocardiogram with color flow and Doppler was performed. The study quality was technically adequate. There is no prior echocardiogram noted for this patient. The patient was in normal sinus rhythm during the exam. Left Ventricle: The left ventricle is normal in size and wall thickness. Left ventricular systolic function is normal. The ejection fraction is estimated to be 55-60%. There are no focal wall motion abnormalities. Diastolic parameters suggest probable normal left ventricular diastolic function and normal filling pressures. Right Ventricle: The right ventricle is normal in size and function. Atria: Both atria are normal in size. There is no Doppler evidence for an interatrial shunt. Mitral Valve: The mitral valve is normal in structure and function. There is trace mitral regurgitation. Aortic Valve: The aortic valve is trileaflet. The aortic valve opens well. There is no aortic valve stenosis. No aortic regurgitation is present. Tricuspid Valve: The tricuspid valve is normal in structure and function. There is mild tricuspid regurgitation. The right ventricular systolic pressure is estimated to be at least 18 mmHg based on an estimated right atrial pressure of 3 mm Hg. Pulmonic Valve: The pulmonic valve leaflets are thin and pliable; valve motion is normal. There is trace pulmonic regurgitation. There is no significant valvular heart disease. Great Vessels: The aortic root is normal size. The ascending aorta is normal in size. The IVC is of normal diameter and collapses greater than 50% with a sniff. This suggests a low right atrial pressure of 3 mm Hg. Pericardium/ Pleura There is no pericardial effusion. There is no pleural effusion. MMode/2D Measurements & Calculations LVIDd: 4.1 cm LVOT diam: 2.2 cm LVIDs: 2.8 cm Ao root diam: 3.5 cm FS: 31.7 % asc Aorta Diam: 2.9 cm IVSd: 1.0 cm LVPWd: 0.90 cm LV shel[place]. diameter/BSA (cm/m^2): 2.4 LV sys. diameter/BSA (cm/m^2): 1.6 LA A2 area: 15.4 cm2 RA long axis: 4.3 cm LA A4 area: 11.4 cm2 LA length (vol): 5.0 cm LA vol: 29.7 ml LA vol index: 17.3 ml/m2 LVLs ap4: 6.4 cm LVLd ap2: 7.6 cm LVLs ap2: 6.2 cm TAPSE_phl: 1.9 cm Doppler Measurements & Calculations Ao V2 max: 109.0 cm/sec LVOT Max Sinan: 88.7 cm/sec Ao V2 mean: 77.7 cm/sec LV V1 max P.1 mmHg Ao max P.0 mmHg LV V1 VTI: 21.5 cm Ao mean P.0 mmHg CYNTHIA(I,D): 3.2 cm2 Ao V2 VTI: 25.9 cm CYNTHIA(V,D): 3.1 cm2 sev ratio: 0.83 CYNTHIA indexed to BSA (cm^2/m^2): 1.8 MV E max sinan: 49.3 cm/sec TR max sinan: 192.0 cm/sec MV A max sinan: 78.0 cm/sec TR max P.7 mmHg MV E/A: 0.63 PA V2 max: 70.3 cm/sec Med Peak E' Sinan: 6.9 cm/sec PA V2 mean: 51.0 cm/sec E/E' med: 7.2 PA mean P.0 mmHg Lat Peak E' Sinan: 8.8 cm/sec PA pr(Accel): 21.9 mmHg E/E' lat: 5.6 E/e' average: 6.4 MV dec time: 0.38 sec SV(LVOT): 81.7 ml AV VR_phl: 0.81 CYNTHIA(VTI)/BSA_phl: 1.8 MV P1/2t-pr_phl: 112.0 msec Reading Physician:02:24 PM
--- NOTE | 2022-10-09 | PATH_ITS ---
Note [facility] Accession Number: [id number] TESTS RESULT FLAG UNITS REF RANGE LAB Clinician Provided Cytology Information No. of containers..01 Other (Miscellaneous) No. of containers..08 Previously Prepared Cytology Slide Source: RIGHT INFERIOR THYROID NODULE DIAGNOSIS: RIGHT INFERIOR THYROID NODULE NEGATIVE FOR MALIGNANT CELLS. SPECIMEN IS SATISFACTORY BUT SCANTLY CELLULAR. BETHESDA CATEGORY II. SPECIMEN CONSISTS OF SCANT GROUPS OF BENIGN FOLLICULAR CELLS, COLLOID, AND BLOOD. THIS PATTERN IS MOST CONSISTENT WITH A BENIGN FOLLICULAR NODULE. Pathologist ICD10: 01 E04.1 Signed out by: Jill Santiago MD, Pathologist NPI- [id number] Performed by: Mandeep Corado, Tool Design Drafter ([facility]) Gross description: 30 CC, RED, CLEAR RECIEVED: IN CYTOLYT WITH 9 ALCOHOL FIXED AND 9 QUICK STAINED SLIDES ALSO 1 RNA VIAL WAS RECEIVED.VO /VDU 10/12/2022 [facility] Local FLAG LEGEND: L-Low Normal,H-High Normal,LL-Alert Low,HH-Alert High <-Panic Low,>-Panic High,A-Abnormal,AA-Critical Abnormal Performed at: 01 =Z [facility] [address], [place] [address] Nayan Davis MD, Performed at: 01 [facility] [address], [place], [place] [id number] MD Nayan Davis MD Phone: [phone]
--- NOTE | 2022-10-09 | DI.US.S_ITS ---
PROCEDURE: US FINE NEEDLE ASPIRATION INDICATIONS: Nontoxic single thyroid nodule TECHNIQUE: The indications, alternatives, benefits, risks, and complications of the procedure were explained to the patient. Written informed consent was obtained and placed in the chart. The thyroid region was examined sonographically and a site was chosen for ultrasound guided percutaneous sampling. The skin was prepared and draped in the usual fashion, and anesthetized with 1% lidocaine infiltrated from the skin down to the thyroid gland. Multiple passes were then performed, with contents emptied into an appropriate pathology specimen container. A bandage was applied to the area of access at completion of the study. COMPARISON: None. FINDINGS: Location(s) of lesion(s) sampled: right inferior nodule. Baker: 25 gauge hypodermic needles. Number of passes: 9 Medications: 1% lidocaine for local anaesthesia. Complications: None. IMPRESSION: Successful ultrasound-guided thyroid nodule fine needle aspiration, with cytology results pending. Please see chart below for management recommendations based on cytology results. [facility] ReportingRecommendationsNon-diagnostic* Repeat US-guided FNA, with on-site cytology evaluation if possible. * Repeated non-diagnostic nodules without high suspicion US features: close observation vs surgical consult. * Consider surgery if nodule has high suspicion US features, grows >20% in 2 dimensions on followup, or patient has clinical risk factors for malignancy. Benign* If nodule has high suspicion US features: repeat US and FNA within 12 months. * If nodule has low to intermediate suspicion US features: repeat US at 12-24 months. If nodule grows (20% increase in at least 2 dimensions, with minimal increase of 2 mm or >50% change in volume), or development of new suspicious US features, then repeat FNA or continue followup. * If nodule has very low suspicion US features: followup US at >24 months. Atypia of undetermined significance, follicular lesion of undetermined significanceRepeat FNA, molecular testing, followup US, or surgical consult.Follicular neoplasm, suspicious for follicular neoplasmSurgical consult; also consider molecular testing. Suspicious for malignancySurgical consult.MalignantSurgical consult. Dictated by: Kwasi Monae M.D. on 10/09/2022 at 16:00 Approved by: Kwasi Monae M.D. on 10/09/2022 at 16:00
== END ==
PROVIDERS: PCP Family Medicine; Referring Provider Family Medicine; Visit Provider Family Medicine
DX: R55 Syncope and collapse (principal); E04.1 Nontoxic single thyroid nodule
CPT/HCPCS: 10005; 93306

== ENCOUNTER → 2023-05-29 10:03 | Outpatient (CLI) | payer MEDICARE, OTHER, SELFPAY ==
[2018-03-25 16:14] VITALS: BMI 21.6
--- NOTE | 2023-05-29 | DI.MG.S_ITS ---
BILATERAL DIGITAL SCREENING MAMMOGRAM 3D/2D WITH CAD: 05/29/2023 CLINICAL: Routine screening. Comparison is made to exams dated: 02/24/2022 mammogram, 02/06/2021 mammogram, and 10/19/2018 mammogram - [facility]. Both breasts are heterogeneously dense, which may obscure small masses (category c / 51-75% glandular tissue). Current study was also evaluated with a Computer Aided Detection (CAD) system. No significant masses, calcifications, or other findings are seen in either breast. There has been no significant interval change. IMPRESSION: NEGATIVE There is no mammographic evidence of malignancy. A 1 year screening mammogram is recommended. Based on the Tyrer Cuzick model (a risk assessment model) the patient's lifetime risk is 5.8% and her 10 year risk is 5.2%. According to the ACR, ACS, and NCCN guidelines, an annual breast MRI exam along with mammogram is recommended if the patient's lifetime risk is 20% or greater. This exam was interpreted at Station ID: [id number]. NOTE: For mammograms, a report in lay terms will be sent to the patient. Approximately 15% of breast malignancies will not be visualized mammographically. In the management of a palpable breast mass, a negative mammogram must not discourage biopsy of a clinically suspicious lesion. Electronically Signed By: Yazmin morris/ashwini:05/31/2023 12:57:55 letter sent: Normal Exam ACR BI-RADS Category 1: Negative [id number]
== END ==
LOC: MAMMO 10:07
PROVIDERS: PCP Family Medicine; Referring Provider Family Medicine; Visit Provider Family Medicine
DX: Z12.31 Encounter for screening mammogram for malignant neoplasm of breast (principal); R92.333 Mammographic heterogeneous density, bilateral breasts
CPT/HCPCS: 77063; 77067

== ENCOUNTER → 2023-08-16 14:57 | Outpatient (CLI) | payer MEDICARE, OTHER, SELFPAY ==
[2018-03-25 16:14] VITALS: BMI 21.6
--- NOTE | 2023-08-16 15:01 | DI.US.S_ITS ---
PROCEDURE: US THYROID INDICATIONS: FOLLOW-UP NODULES TECHNIQUE: Real-time scanning was performed of the thyroid gland, with image documentation. COMPARISON: [facility], US, US THYROID, 08/21/2022, 10:33. FINDINGS: Thyroid: Right lobe measures 6.8 x 3.1 x 2.8 cm. Left lobe measures 4.6 x 1.5 x 1.0 cm. Isthmus is 0.1 cm thick. Echotexture is homogeneous. Nodule number: 1 Location: Right inferior/lateral Size: 3.3 cm, previously 2.6 cm. Composition: Solid Echogenicity: Isoechoic Shape: wider than tall. Margins: Ill-defined Echogenic foci: None Total points: 3 ACR TI-RADS category: Mildly suspicious Nodule number: 2 Location: Right inferior/medial Size: Stable at 3.4 cm. Composition: Solid Echogenicity: Isoechoic Shape: wider than tall. Margins: Ill-defined Echogenic foci: None Total points: 3 ACR TI-RADS category: Mildly suspicious Nodule number: 3 Location: Right inferior/posterior Size: 1.4 cm, previously 2.3 cm. Composition: Solid Echogenicity: Hypoechoic Shape: wider than tall. Margins: Ill-defined Echogenic foci: Macrocalcification Total points: 5 ACR TI-RADS category: Moderately suspicious Nodule number: 4 Location: Right superior Size: 1.4 cm, previously 1.2 cm. Composition: Solid Echogenicity: Isoechoic Shape: wider than tall. Margins: Smooth Echogenic foci: Punctate Total points: 6 ACR TI-RADS category: Moderately suspicious Nodule number: 5 Location: Left mid Size: 2.3 cm, previously 0.9 cm. Composition: Solid Echogenicity: Isoechoic Shape: wider than tall. Margins: Ill-defined Echogenic foci: None Total points: 3 ACR TI-RADS category: Mildly suspicious IMPRESSION: Multiple thyroid nodules as described above. Nodule 1 is increased in size measuring 3.3 cm, previously 2.6 cm. Prior fine-needle aspiration was performed on right inferior thyroid nodules, recommend correlation with results. If this nodule was not previously sampled, fine-needle aspiration is recommended. Nodule 5 is also increased in size and mildly suspicious. Follow-up in 1 year is recommended. ACR TI-RADS definitions and recommendations: TI-RADS 1 (benign): 0 points. FNA not needed. TI-RADS 2 (not suspicious): 2 points. FNA not needed. TI-RADS 3 (mildly suspicious): 3 points. * FNA if 2.5 cm or larger, follow up if 1.5 cm or larger (at 1, 3, and 5 years). TI-RADS 4 (moderately suspicious): 4-6 points. * FNA if 1.5 cm or larger, follow up if 1 cm or larger (at 1, 2, 3, and 5 years). TI-RADS 5 (highly suspicious): 7 points or more. * FNA if 1 cm or larger, follow up if 0.5 cm or larger (every year for 5 years). Dictated by: Robin Soler M.D. on 08/16/2023 at 16:21 Approved by: Robin Soler M.D. on 08/16/2023 at 16:30
== END ==
LOC: US 15:00
PROVIDERS: PCP Family Medicine; Referring Provider Family Medicine; Visit Provider Family Medicine
DX: E04.2 Nontoxic multinodular goiter (principal)
CPT/HCPCS: 76536

== ENCOUNTER → 2024-01-12 09:55 | Outpatient (CLI) | payer MEDICARE, OTHER, SELFPAY ==
[2018-03-25 16:14] VITALS: BMI 21.6
--- NOTE | 2024-01-12 09:56 | DI.RAD.S_ITS ---
PROCEDURE: XR DEXA AXIAL SKELETON INDICATIONS: Age-related osteoporosis without current pathologi COMPARISON: [facility], , XR DEXA AXIAL SKELETON, 03/19/2022, 11:00. 10/19/2018, 07/07/2016, 11/17/2012, 01/05/2008, 08/20/2005 FINDINGS: Lumbar Spine (L1 excluded due to increased density): Bone mineral density 1.007 g/cm2, T score 0, previously 0. Left Hip: Bone mineral density 0.56 g/cm2, T score -2.6, previously -2.7. Left Femoral Neck: Bone mineral density 0.672 g/cm2, T score -2.2, previously -1.9. Right Hip: Bone mineral density 0.555 g/cm2, T score -2.7, previously -2.5. Right Femoral Neck: Bone mineral density 0.722 g/cm2, T score -1.8, previously -1.5. Fracture Risk Calculation (when applicable): Not reported due to osteoporosis. (T score greater or equal to -1.0 to: NORMAL) (T score from -1.1 to -2.4: OSTEOPENIA) (T score less than or equal to -2.5: OSTEOPOROSIS) IMPRESSION: Osteoporosis. Follow-up guidelines as follows: Osteoporosis: Consider a repeat DEXA and Vertebral Fracture Assessment (VFA) exam in 2 years or sooner if medically necessary, to reassess this patient's status. Osteopenia: Consider a repeat DEXA in 2-3 years to reassess this patient's status, or if there is a new clinical indication. Normal: Consider a repeat DEXA in 5 years or sooner, or if there is a new clinical indication. All treatment decisions require clinical judgment and consideration of individual patient factors, including patient preferences, comorbidities, previous drug use, risk factors not captured in the FRAX model (e.g., frailty, falls, vitamin D deficiency, increased bone turnover, interval significant decline in bone density ) and possible under- or over-estimation of fracture risk by FRAX. In addition, the NOF Guide recommends that FDA-approved medical therapies be considered in postmenopausal women and men age >= 50 years with a: * Hip or vertebral (clinical or morphometric) fracture * T-score of <=-2.5 at the spine or hip * Ten-year fracture probability by FRAX of >= 3% for hip fracture or >=20% for major osteoporotic fracture. People with diagnosed cases of osteoporosis or at high risk for fracture should have regular bone mineral density tests. For patients eligible for Medicare, routine testing is allowed once every 2 years. The testing frequency can be increased to one year for patients who have rapidly progressing disease, those who are receiving or discontinuing medical therapy to restore bone mass, or have additional risk factors. Dictated by: Pb Gottlieb M.D. on 01/12/2024 at 14:08 Approved by: Pb Gottlieb M.D. on 01/12/2024 at 14:12
== END ==
LOC: RAD 09:56
PROVIDERS: PCP Family Medicine; Referring Provider Family Medicine; Visit Provider Family Medicine
DX: C43.9 Malignant melanoma of skin, unspecified (principal); M81.0 Age-related osteoporosis without current pathological fracture; E04.1 Nontoxic single thyroid nodule; E78.2 Mixed hyperlipidemia; F41.9 Anxiety disorder, unspecified
CPT/HCPCS: 77080

== ENCOUNTER → 2024-07-24 11:07 | Outpatient (CLI) | payer MEDICARE, OTHER, SELFPAY ==
[2018-03-25 16:14] VITALS: BMI 21.6
--- NOTE | 2024-07-24 11:10 | DI.MG.S_ITS ---
MM screening mammo BI: 07/24/2024. BI-RADS: 1 CLINICAL: 74-year old female for bilateral screening mammogram. Tyrer-Cuzick lifetime risk of 3.5%. No personal or first-degree family history of breast cancer. The patient had a prior left breast biopsy. PRIOR EXAMS 05/29/2023, 02/24/2022, 02/06/2021. MAMMOGRAPHY TECHNIQUE: Bilateral CC and MLO tomosynthesis with synthesized views were obtained. Current study was also evaluated with a Computer Aided Detection (CAD) system. DENSITY C. The breasts are heterogeneously dense, which may obscure small masses. MAMMOGRAPHY FINDINGS Bilateral: No suspicious mass, asymmetry, microcalcification, or other abnormality seen. No suspicious change on comparison. IMPRESSION: * No evidence of malignancy. RECOMMENDATIONS Bilateral * Annual screening mammography. OVERALL ASSESSMENT CATEGORY BI-RADS-1: Negative. The [employer] recommends annual screening mammography beginning at age 40 for women with average risk of breast cancer. ELECTRONICALLY SIGNED: Timothy Delarosa M.D. on 07/24/2024 at 12:33:12 PM Interpreting Station ID: [id number]
--- NOTE | 2024-07-24 11:10 | DI.US.S_ITS ---
PROCEDURE: US THYROID INDICATIONS: THYROID NODULE TECHNIQUE: Real-time scanning was performed of the thyroid gland, with image documentation. COMPARISON: [facility], US, US THYROID, 08/16/2023, 15:38. FINDINGS: Thyroid: Right lobe measures 7.5 x 2.7 x 3.5 cm. Left lobe measures 4.2 x 1.5 x 1 cm. Isthmus is 0.1 cm thick. Echotexture is heterogeneous. Nodule number: 1 Location: Right inferolateral Size: 4.3 x 2.6 x 1.9 cm. Previously 3.3 x 1.9 x 1.8 Composition: Solid Echogenicity: Isoechoic Shape: Taller than wide Margins: Smooth Echogenic foci: None Total points: 6 ACR TI-RADS category: TR 4. Sampling recommended. Nodule number: 2 Location: Right inferior medial Size: 3.5 x 1.4 x 1.5 cm. Stable Composition: Solid Echogenicity: Isoechoic Shape: wider than tall. Margins: Ill-defined Echogenic foci: None Total points: 3 ACR TI-RADS category: TR 3. Sampling recommended if not already obtained. Nodule number: 3 Location: Right inferior posterior Size: 1.4 x 1.2 x 0.9 cm. Slightly decreased. Composition: Solid Echogenicity: Hypoechoic Shape: Taller than wide Margins: Ill-defined Echogenic foci: Macro calcifications Total points: 8 ACR TI-RADS category: TR 5. Sampling recommended if not already obtained. Nodule number: 4 Location: Right superior Size: 1.5 x 0.9 x 1 cm. Stable Composition: Solid Echogenicity: Hypoechoic Shape: wider than tall. Margins: Smooth Echogenic foci: Punctate Total points: 7 ACR TI-RADS category: TR 5. Sampling recommended if not already obtained. Nodule number: Location: Left mid Size: 2.2 x 1.3 x 1.1, stable Composition: Solid Echogenicity: Isoechoic Shape: Taller than wide Margins: Ill-defined Echogenic foci: None Total points: 6 ACR TI-RADS category: TR 4. Sampling recommended if not already obtained. IMPRESSION: Nodule 1 is larger than prior. The other nodules are stable. These meet criteria for sampling. ACR TI-RADS definitions and recommendations: TI-RADS 1 (benign): 0 points. FNA not needed. TI-RADS 2 (not suspicious): 2 points. FNA not needed. TI-RADS 3: 3 points. * FNA if 2.5 cm or larger, follow up if 1.5 cm or larger (at 1, 3, and 5 years). TI-RADS 4: 4-6 points. * FNA if 1.5 cm or larger, follow up if 1 cm or larger (at 1, 2, 3, and 5 years). TI-RADS 5: 7 points or more. * FNA if 1 cm or larger, follow up if 0.5 cm or larger (every year for 5 years). Dictated by: Vega Hoffman M.D. on 07/24/2024 at 16:24 Approved by: Vega Hoffman M.D. on 07/24/2024 at 16:36
== END ==
LOC: US 11:09
PROVIDERS: PCP Family Medicine; Referring Provider Family Medicine; Visit Provider Family Medicine
DX: Z12.31 Encounter for screening mammogram for malignant neoplasm of breast (principal); E04.2 Nontoxic multinodular goiter; R92.333 Mammographic heterogeneous density, bilateral breasts
CPT/HCPCS: 76536; 77063; 77067

== ENCOUNTER → 2024-09-01 12:37 | Outpatient (CLI) | payer MEDICARE, OTHER, SELFPAY ==
[2018-03-25 16:14] VITALS: BMI 21.6
--- NOTE | 2024-09-01 12:41 | DI.US.S_ITS ---
PROCEDURE: US FINE NEEDLE ASPIRATION INDICATIONS: MULTIPLE THYROID NODULES TECHNIQUE: The indications, alternatives, benefits, risks, and complications of the procedure were explained to the patient. Written informed consent was obtained and placed in the chart. The thyroid region was examined sonographically and a site was chosen for ultrasound guided percutaneous sampling. The skin was prepared and draped in the usual fashion, and anesthetized with 1% lidocaine infiltrated from the skin down to the thyroid gland. Multiple passes were then performed, with contents emptied into an appropriate pathology specimen container. A bandage was applied to the area of access at completion of the study. COMPARISON: [facility], US, US THYROID, 07/24/2024, 11:27. [facility], US, US FINE NEEDLE ASPIRATION, 10/09/2022, 14:17. FINDINGS: Location(s) of lesion(s) sampled: Right inferior lateral 4.3 cm nodule (#1 on the 07/24/2024 thyroid ultrasound report); nodule 3 was not amenable to successful biopsy given excessive overlying vascularity [place]: 25 gauge hypodermic needles. Number of passes: 6 Medications: 1% lidocaine for local anaesthesia. Complications: None. IMPRESSION: Successful ultrasound-guided thyroid nodule fine needle aspiration of nodule #1 right inferior lateral 4.3 cm nodule, with cytology results pending. Please see chart below for management recommendations based on cytology results. [facility] ReportingRecommendationsNon-diagnostic* Repeat US-guided FNA, with on-site cytology evaluation if possible. * Repeated non-diagnostic nodules without high suspicion US features: close observation vs surgical consult. * Consider surgery if nodule has high suspicion US features, grows >20% in 2 dimensions on followup, or patient has clinical risk factors for malignancy. Benign* If nodule has high suspicion US features: repeat US and FNA within 12 months. * If nodule has low to intermediate suspicion US features: repeat US at 12-24 months. If nodule grows (20% increase in at least 2 dimensions, with minimal increase of 2 mm or >50% change in volume), or development of new suspicious US features, then repeat FNA or continue followup. * If nodule has very low suspicion US features: followup US at >24 months. Atypia of undetermined significance, follicular lesion of undetermined significanceRepeat FNA, molecular testing, followup US, or surgical consult.Follicular neoplasm, suspicious for follicular neoplasmSurgical consult; also consider molecular testing. Suspicious for malignancySurgical consult.MalignantSurgical consult. Dictated by: Adam Escobar M.D. on 09/01/2024 at 16:12 Approved by: Adam Escobar M.D. on 09/01/2024 at 16:14
--- NOTE | 2024-09-01 14:33 | PATH_ITS ---
Note [facility] Accession Number: [id number] TESTS RESULT FLAG UNITS REF RANGE LAB Clinician Provided Cytology Information No. of containers..01 Other (Miscellaneous) No. of containers..02 Previously Prepared Cytology Slide Source: RIGHT THYROID MASS #1 DIAGNOSIS: RIGHT THYROID MASS #1 NON-DIAGNOSTIC. [place] CATEGORY I. UNSATISFACTORY. INSUFFICIENT CELLULARITY. Pathologist ICD10: E04.1 Signed out by: Jill Santiago MD, Pathologist NPI- [id number] Performed by: Omid Richey, Engine Maintenance Mechanic ([facility]) Gross description: 01 30 CC, COLORLESS, CLEAR RECIEVED: IN CYTOLYT WITH 6 ALCOHOL FIXED AND 6 QUICK STAINED SLIDES ALSO 1 RNA VIAL WILL ON 12-29-2024.VO /VDU 09/04/2024 [id number] [facility] FLAG LEGEND: L-Low Normal,H-High Normal,LL-Alert Low,HH-Alert High <-Panic Low,>-Panic High,A-Abnormal,AA-Critical Abnormal Performed at: 01 =Z [facility] [address], [place] [address] Nayan Davis MD, Performed at: 01 [facility] [address], [place], [place] [id number] MD Nayan Davis MD Phone: [phone]
== END ==
PROVIDERS: PCP Family Medicine; Referring Provider Family Medicine; Visit Provider Family Medicine
DX: E04.1 Nontoxic single thyroid nodule (principal)
CPT/HCPCS: 10005

== ENCOUNTER 2024-12-18 09:38 | Emergency (ER) | payer MEDICARE, OTHER, SELFPAY ==
[2018-03-25 16:14] VITALS: BMI 21.6
[2024-12-18 09:52] VITALS: BP 170/77; PULSE 68; RESP 18; TEMP 36.3; O2SAT 99; BMI 22.9
--- NOTE | 2024-12-18 11:16 | ED.WOUNDLAC ---
HPI - Wound/Laceration General Chief Complaint: Wound/Laceration Stated Complaint: cut left index finger Time Seen by Provider: 12/18/24 10:23 Source: patient Mode of arrival: Ambulatory History of Present Illness HPI narrative: 74-year-old female presents to the ED status post a left index finger laceration sustained just prior to arrival. Patient was trying to cut of the foil from a wine bottle with a knife, when she accidentally hit the base of her left index finger. Bleeding has been controlled with pressure. Patient endorses pain at the site of the wound. Patient denies numbness, tingling, weakness. Last tetanus is unknown. Related Data Home Medications ?Medication ?Instructions ?Recorded ?Confirmed citalopram 20 mg tablet (Celexa) 30 mg PO DAILY ##0 08/19/16 06/30/22 bupropion HCl 150 mg tablet,12 hr 150 mg PO DAILY 03/25/18 06/30/22 sustained-release Allergies Allergy/AdvReac Type Severity Reaction Status Date / Time latex (LATEX) Allergy Intermediate RASH Verified 12/18/24 09:52 Penicillins (PENICILLINS) Allergy Intermediate RASH Verified 12/18/24 09:52 Review of Systems Constitutional Constitutional: Denies chills, Denies fatigue, Denies fever(s), Denies frequent falls, Denies lethargy and Denies weakness Eyes Eyes: Denies change in vision, Denies eye discharge, Denies irritation and Denies loss of vision ENT Ears, Nose, Mouth, and Throat: Denies change in voice, Denies dizziness, Denies neck pain, Denies sore throat and Denies throat swelling Cardiovascular Cardiovascular: Denies chest pain, Denies irregular heart rhythm, Denies lightheadedness, Denies palpitations, Denies dyspnea, Denies dyspnea on exertion and Denies orthopnea Respiratory Respiratory: Denies cough, Denies dyspnea, Denies dyspnea on exertion and Denies wheezing Gastrointestinal Gastrointestinal: Denies abdominal pain, Denies change in bowel habits, Denies diarrhea, Denies nausea and Denies vomiting Musculoskeletal Musculoskeletal: Denies neck pain and Denies numbness Integumentary/Breasts Skin/Breast: Denies pruritus, Denies erythema, Denies rash and Reports wounds Comments: Laceration to left index finger Neurologic Neurologic: Denies behavioral changes, Denies confusion, Denies dizziness, Denies frequent falls, Denies loss of vision, Denies numbness and Denies weakness Psychiatric Psychiatric: Denies anxiety, Denies behavioral changes, Denies confusion, Denies depression, Denies homicidal ideation and Denies suicidal ideation Endocrine Endocrine: Denies fatigue, Denies flushing and Denies palpitations Hematologic/Lymphatic Hematologic/Lymphatic: Denies easy bruising Allergic/Immunologic Allergic/Immunologic: Denies urticaria, Denies throat swelling and Denies wheezing Patient History Medical History Depression Social History household members: spouse Smoking Status: Never smoker alcohol intake: current Smoking Status: Never smoker alcohol intake frequency: 0-2 drinks per day Alcohol type: wine Exam Narrative Exam Narrative: Const General:?cooperative, healthy appearing and comfortable [facility] Head:?normal to inspection Ears:?hearing grossly normal bilaterally Nose:?external nose normal Face and sinus:?normal facial exam and sinuses nontender Mouth:?oral mucosae normal Throat:?posterior oropharynx normal Eyes General:?appearance normal, both eyes and all related structures Neck Neck:?normal visual inspection and no lymphadenopathy noted Resp Effort & Inspection:?normal respiratory effort Auscultation:?clear to auscultation bilaterally Cardio Rate:?regular rate Rhythm:?regular rhythm Integumentary There is a 0.5 cm linear laceration to the left index finger, just distal to the MCP joint. Bleeding is controlled with pressure. There is some bony tenderness to the MCP. Strength and sensation is intact. There is full range of motion. Neurovascularly intact. Neuro General:?patient alert, patient awake and patient oriented x3 Initial Vital Signs Initial Vital Signs: Vital Signs Temperature 97.4 F L 12/18/24 09:52 Pulse Rate 68 12/18/24 09:52 Respiratory Rate 18 12/18/24 09:52 Blood Pressure 170/77 H 12/18/24 09:52 Pulse Oximetry 99 12/18/24 09:52 Oxygen Delivery Method Room Air 12/18/24 09:52 Procedures Laceration Repair Laceration 1: Site: hand Side (If applicable): left Size (cm): 0.5 Description: linear Depth: simple, single layer Local Anesthetic: lidocaine 2% Amount of anesthesia used (mL): 0.5 Pre-repair: wound explored, irrigated extensively and deep structures intact Skin layer closed with: nylon Skin layer suture size: 5-0 Number of sutures: 2 Technique: simple, interrupted Course Orders Ordered: ED Orders 12/18/24 11:24 XR hand LT min 3V Stat Discontinued Medications Diphtheria/Tetanus/Acell Pertussis (Tet,Diph,Pertuss(Acell),Vac/Pf 0.5 Ml Syringe) 0.5 ml IM .ONCE ONE Stop: 12/18/24 11:25 Last Admin: 12/18/24 11:44 Dose: 0.5 ml Vital Signs Vital signs: Vital Signs - 8 hr 12/18/24 09:52 Temperature 97.4 F L Pulse Rate 68 Respiratory Rate 18 Blood Pressure 170/77 H Pulse Oximetry 99 Oxygen Delivery Method Room Air MDM - Wound/Laceration MDM Narrative Medical decision making narrative: 74-year-old female presents to the ED status post a left index finger laceration sustained just prior to arrival. There is a 0.5 cm linear laceration to the base of the left index finger, just distal to the MCP joint. There is some bony tenderness to the MCP joint. Will obtain an x-ray to rule out bony injury. Will repair the laceration with sutures. X-ray without acute left hand fracture or dislocation. No radiopaque foreign bodies. Laceration was repaired with 2 sutures. Suture removal and wound care instructions discussed with patient. Tetanus was updated today. ED return precautions discussed with patient. Patient verbalized understanding. Medical records reviewed: Yes Discharge Plan Departure Patient Disposition: Home Clinical Impression: Laceration Instructions: DI for Laceration Repair Activity Restrictions/Additional Instructions: You were evaluated in the emergency department for a hand injury. The laceration was repaired with 2 sutures. The sutures will need to be removed in 7-10 days. You may return to the ED, go to a walk-in clinic or your by PCP's office for suture removal. Your tetanus was updated today which is good for the next 10 years. Please keep the wound clean and dry for the 1st 24 hours, following which you may wash gently with soap and water, dry well prior to re-dressing. Please watch for signs of infection including worsening redness, pain, swelling, warmth, discharge. Return to the ED if you note any signs of infection. Prescriptions: No Action citalopram [Celexa] 20 MG tablet 30 mg PO DAILY Qty: 0 bupropion HCl 150 mg tablet sustained-release 12 hr 150 mg PO DAILY Referrals: Candelaria Acuña MD [Primary Care Provider, Family Practice] Stand Alone Forms: Patient Portal/API
--- NOTE | 2024-12-18 11:24 | DI.RAD.S_ITS ---
PROCEDURE: XR HAND LT MIN 3V INDICATIONS: laceration TECHNIQUE: 3 views of the hand(s) acquired. COMPARISON: None. FINDINGS: Bones: No fractures or dislocations. Carpal bones are normally aligned. Osteoarthritic changes are noted throughout left hand and wrist joints. No suspicious bony lesions. Soft tissues: No suspicious soft tissue calcifications. IMPRESSION: No acute left hand fracture or dislocation. Left hand and wrist joint osteoarthritis. No radiopaque foreign bodies. Dictated by: Richard Trevino M.D. on 12/18/2024 at 12:00 Approved by: Richard Trevino M.D. on 12/18/2024 at 12:01
[2024-12-18] MEDS: TET,DIPH,PERTUSS(ACELL),VAC/PF 0.5 ML SYRINGE IM (11:44)
[2024-12-18 12:47] VITALS: BP 161/93; PULSE 68; RESP 18; O2SAT 98
== END 2024-12-18 12:48 | disposition home or self-care (01) ==
PROVIDERS: Emergency Provider Student in an Organized Health Care Education/Training Program; PCP Family Medicine
DX: S61.211A Laceration without foreign body of left index finger without damage to nail, initial encounter (principal); W26.0XXA Contact with knife, initial encounter; Z23 Encounter for immunization
CPT/HCPCS: 12001; 73130; 90471; 99283; 99284; 90715

== ENCOUNTER → 2025-01-31 10:45 | Outpatient (CLI) | payer MEDICARE, OTHER, SELFPAY ==
[2018-03-25 16:14] VITALS: BMI 21.6
--- NOTE | 2025-01-31 10:47 | DI.RAD.S_ITS ---
PROCEDURE: XR DEXA AXIAL SKELETON INDICATIONS: OSTEOPOROSIS SCREENING COMPARISON: [facility], CR, XR DEXA AXIAL SKELETON, 01/12/2024, 11:02. FINDINGS: Lumbar Spine: Bone mineral density 1.045 (previously 1.077) g/cm2, T score -0.3 (previously 0.0.). Left Femoral Neck: Bone mineral density 0.566 (previously 0.556) g/cm2, T score -2.5 (previously -2.6). Left Hip: Bone mineral density 0.670 (previously 0.672) g/cm2, T score -2.2 (previously -2.2). Fracture Risk Calculation (when applicable): 10-year fracture risk of a major osteoporotic fracture 23 percent and of a hip fracture 7.1 percent. (T score greater or equal to -1.0 to: NORMAL) (T score from -1.1 to -2.4: OSTEOPENIA) (T score less than or equal to -2.5: OSTEOPOROSIS) IMPRESSION: Osteoporosis--- recommend repeat DEXA in 2 years or less for reassessment of response to treatment. Follow-up guidelines as follows: Osteoporosis: Consider a repeat DEXA and Vertebral Fracture Assessment (VFA) exam in 2 years or sooner if medically necessary, to reassess this patient's status. Osteopenia: Consider a repeat DEXA in 2-3 years to reassess this patient's status, or if there is a new clinical indication. Normal: Consider a repeat DEXA in 5 years or sooner, or if there is a new clinical indication. All treatment decisions require clinical judgment and consideration of individual patient factors, including patient preferences, comorbidities, previous drug use, risk factors not captured in the FRAX model (e.g., frailty, falls, vitamin D deficiency, increased bone turnover, interval significant decline in bone density ) and possible under- or over-estimation of fracture risk by FRAX. In addition, the NOF Guide recommends that FDA-approved medical therapies be considered in postmenopausal women and men age >= 50 years with a: * Hip or vertebral (clinical or morphometric) fracture * T-score of <=-2.5 at the spine or hip * Ten-year fracture probability by FRAX of >= 3% for hip fracture or >=20% for major osteoporotic fracture. Dictated by: Adam Barger M.D. on 01/31/2025 at 19:14 Approved by: Adam Barger M.D. on 01/31/2025 at 19:17
== END ==
PROVIDERS: PCP Family Medicine; Referring Provider Family Medicine; Visit Provider Family Medicine
DX: M81.0 Age-related osteoporosis without current pathological fracture (principal)
CPT/HCPCS: 77080

== ENCOUNTER → 2025-03-20 11:37 | Outpatient (CLI) | payer MEDICARE, OTHER, SELFPAY ==
[2018-03-25 16:14] VITALS: BMI 21.6
--- NOTE | 2025-03-20 11:39 | DI.ECHO.S_ITS ---
[place] [facility]---------+ [facility] : : [address] : : [place] : : [id number] : : Phone: [phone] Echocardiogram Report + + :Name: ANUPAMA GOODRICH Study Date: 03/20/2025 Height: 65 in : :Hospital ReadingLocation: Weight: 136 lb : : Gender: Female BSA: 1.7 m2 : :: 1950 Age: 74 yrs BP: 135/79 mmHg: :Reason For Study: Trigeminy : :Ordering Physician: RG, : :LIYAH Performed By: Raul Sunshine : :Referring: LIYAH DIEZ : + + Interpretation Summary The left ventricle is normal in size and wall thickness. Left ventricular systolic function is normal. The ejection fraction is estimated to be 55-60%. There are no focal wall motion abnormalities. Grade I diastolic dysfunction with normal left atrial pressure. The right ventricle is normal in size and function. The right ventricular systolic pressure is estimated to be at least 21 mmHg based on an estimated right atrial pressure of 3 mm Hg. The left atrial size is normal. There is no significant valvular heart disease. The aortic root is normal size. Procedure: A two-dimensional transthoracic echocardiogram with color flow and Doppler was performed. The study quality was technically adequate. Comparison is made with the echocardiogram of 10/09/2022. The heart rate ranged between 61-84 bpm during the study. Left Ventricle: The left ventricle is normal in size and wall thickness. Left ventricular systolic function is normal. The ejection fraction is estimated to be 55-60%. There are no focal wall motion abnormalities. Grade I diastolic dysfunction with normal left atrial pressure. Right Ventricle: The right ventricle is normal in size and function. Atria: The left atrial size is normal. Right atrial size is normal. There is no Doppler evidence for an interatrial shunt. Mitral Valve: The mitral valve leaflets appear to open well. There is no mitral valve stenosis. There is trace mitral regurgitation. Aortic Valve: The aortic valve is trileaflet. The aortic valve opens well. There is no aortic valve stenosis. No aortic regurgitation is present. Tricuspid Valve: The tricuspid valve is not well visualized, but is grossly normal. There is trace tricuspid regurgitation. The right ventricular systolic pressure is estimated to be at least 21 mmHg based on an estimated right atrial pressure of 3 mm Hg. Pulmonic Valve: The pulmonic valve is not well seen, but is grossly normal. There is trace pulmonic regurgitation. There is no significant valvular heart disease. Great Vessels: The aortic root is normal size. The ascending aorta is normal in size. The aortic arch could not be visualized. The pulmonary artery is normal size. The IVC is of normal diameter and collapses greater than 50% with a sniff. This suggests a low right atrial pressure of 3 mm Hg. Pericardium/ Pleura There is no pericardial effusion. MMode/2D Measurements & Calculations LVIDd: 4.0 cm LVOT diam: 2.3 cm LVIDs: 2.5 cm Ao root diam: 3.4 cm FS: 38.4 % asc Aorta Diam: 2.9 cm IVSd: 0.96 cm LVPWd: 0.94 cm LV shelton. diameter/BSA (cm/m^2): 2.4 LV sys. diameter/BSA (cm/m^2): 1.5 LA A2 area: 14.7 cm2 RA long axis: 4.4 cm LA A4 area: 17.5 cm2 RA area: 11.9 cm2 LA length (vol): 5.3 cm RA vol: 27.6 ml LA vol: 41.2 ml RA : 16.5 ml/m2 LA vol index: 24.6 ml/m2 IVC diam: 2.0 cm RVD1 (basal): 3.2 cm RVD2 (mid): 2.6 cm TAPSE: 2.0 cm Doppler Measurements & Calculations LVOT Max Sinan: 84.0 cm/sec MV E max sinan: 53.5 cm/sec LV V1 max P.8 mmHg MV A max sinan: 76.1 cm/sec LV V1 VTI: 18.9 cm MV E/A: 0.70 Med Peak E' Sinan: 4.4 cm/sec E/E' med: 12.3 Lat Peak E' Sinan: 7.0 cm/sec E/E' lat: 7.6 E/e' average: 9.9 MV dec time: 0.22 sec TR max sinan: 210.3 cm/sec SV(LVOT): 80.4 ml TR max P.7 mmHg PA V2 max: 104.5 cm/sec PA V2 mean: 71.7 cm/sec PA mean P.3 mmHg PA pr(Accel): 25.1 mmHg Qp/Qs (V,LVOT): 1.1/1.0 Reading Physician:01:04 PM
== END ==
LOC: ECHO 11:39
PROVIDERS: PCP Family Medicine; Referring Provider Family Medicine; Visit Provider Family Medicine
DX: R00.8 Other abnormalities of heart beat (principal)
CPT/HCPCS: 93306